=== PATIENT | male | born 1950 | race Caucasian/White ===

== ENCOUNTER 2020-10-10 11:19 | Emergency (ER) | payer MEDICARE, OTHER, SELFPAY ==
[2020-10-10] VITALS (39 sets, daily range): BP systolic 129–164; BP diastolic 63–94; PULSE 69–110; RESP 7–21; TEMP 36.7; O2SAT 93–100
--- NOTE | ~2020-10-10 | CT_ITS ---
EXAMINATION: CTA brain carotid DATE: 10/10/2020 13:29 INDICATION: Dizziness. TECHNIQUE: Computed tomographic angiography (CTA) of the head was performed without and with 100 mL O mnipaque-350 intravenous contrast. CTA of the neck was performed with intravenous contrast. Automated exposure control and iterative reconstruction technique were employed. The dose-length product was 1 750.40 mGy-cm. Maximum intensity projection and volume rendered 3D-reconstructions were created by felipe fu technologist on a separate workstation. COMPARISON: None. FINDINGS: HEAD CTA: There are old infarcts in the cerebellum bilaterally. There are scattered areas of low atte nuation in the cerebral white matter. There is an old lacunar infarct in the right basal ganglia. The re is no intracranial hemorrhage, acute infarction, or abnormal intracranial mass lesion. The ventric les are normal in size. There is mild mucosal thickening in the ethmoid sinuses. The mastoid air cell s are normal. The orbits are normal. The vertebral arteries are codominant. There is no significant s tenosis of basilar artery. There are foci of moderate stenosis of the posterior cerebral arteries dionte aterally. There is no significant stenosis of the intracranial internal carotid arteries or anterior cerebral arteries. There are foci of moderate stenosis of bilateral M2 middle cerebral arteries. Ther e is no aneurysm. Anterior communicating artery is normal. The posterior communicating arteries are n ormal. NECK CTA: The lungs demonstrate mosaic attenuation, likely small airways disease. There are no pathol ogically enlarged lymph nodes. There is no significant stenosis of the vertebral arteries. There is p laque in the proximal internal carotid arteries. There is 0% stenosis of the proximal right internal carotid artery relative to normal distal artery lumen diameter (NASCET criteria). There is 0% stenosi s of the proximal left internal carotid artery relative to normal distal artery lumen diameter. There is moderate cervical spondylosis. IMPRESSION: 1. Old infarcts in the cerebellum and right basal ganglia. 2. Moderate nonspecific cerebral white matter disease, which likely represents chronic small vessel i schemic disease. 3. Foci of moderate stenosis involving the bilateral middle and posterior cerebral arteries. 4. 0% stenosis of the proximal internal carotid arteries relative to normal distal artery lumen diame ters (NASCET criteria). Reviewed, dictated and finalized at location B. IMPRESSION: 1. Old infarcts in the cerebellum and right basal ganglia. 2. Moderate nonspecific cerebral white matter disease, which likely represents chronic small vessel ischemic disease. 3. Foci of moderate stenosis involving the bilateral middle and posterior cereb ral arteries. 4. 0% stenosis of the proximal internal carotid arteries relative to normal dis madisyn artery lumen diameters (NASCET criteria).
--- NOTE | ~2020-10-10 | XR_ITS ---
EXAMINATION: XR chest 2V DATE: 10/10/2020 13:37 INDICATION: Dizziness TECHNIQUE: frontal and lateral views of the chest were obtained. COMPARISON: None FINDINGS: Eventration of the anterior right hemidiaphragm exaggerated on the frontal projection by lordotic pos itioning. No focal airspace opacities, pulmonary edema, pleural effusion or pneumothorax. The cardiom ediastinal silhouette is normal. Mild thoracic spondylosis. IMPRESSION: 1. No acute cardiopulmonary disease. Reviewed, dictated and finalized at location A.
--- NOTE | 2020-10-10 11:45 | ECG_ITS ---
Measurements Intervals [place] Rate: 77 P: 3 AR: 172 QRS: -16 QRSD: 169 T: -3 QT: 415 QTc: 471 Interpretive Statements SINUS RHYTHM RIGHT BUNDLE BRANCH BLOCK BASELINE ARTIFACT- I, II, III, AVR, AVF, V1-V6 ABNORMAL ECG Electronically Signed On 10-10-2020 12:11:33 CDT by Heladio Winter D.O.
[2020-10-10 11:57] LABS: Basophils Absolute Auto 0.1 K/mm3 (0.0-0.1); Basophils Percent Auto 0.7 % (0.2-1.2); Eosinophils Absolute Auto 0.2 K/mm3 (0-0.3); Eosinophils Percent Auto 2.3 % (0-4.4); Hematocrit 44.3 % (42.0-52.0); Hemoglobin 14.4 g/dL (14.0-18.0); Immature Granulocyte Absolute 0.03 K/mm3 (0.00-0.031); Immature Granulocyte Percent A 0.4 % (0-0.5); Lymphocytes Absolute Auto 1.32 K/mm3 (0.9-3.2); Lymphocytes Percent Auto 19.4 % (18.3-44.2); Mean Corpuscular HGB Conc 32.5 g/dl (32-36); Mean Corpuscular Hemoglobin 29.1 pg (26-34); Mean Corpuscular Volume 89.5 fl (80-100); Mean Platelet Volume 10.8 fl (7.4-10.4); Monocytes Absolute Auto 0.4 K/mm3 (0.1-0.6); Monocytes Percent Auto 5.4 % (2.6-8.5); Neutrophils Absolute Auto 4.9 K/mm3 (1.3-6.7); Neutrophils Percent Auto 71.8 % (45.5-73.1); Platelet Count Result 180 k/mm3 (150-375); Red Blood Count 4.95 M/mm3 (4.6-6.20); Red Cell Distribution Width 13.2 % (11.5-14.5); White Blood Count 6.8 K/mm3 (4.5-10.0)
[2020-10-10 12:04] LABS: Anion Gap 10 mmol/L (8-16); Blood Urea Nitrogen 25 mg/dL (9-20); Calcium 9.1 mg/dL (8.4-10.2); Carbon Dioxide 23 mmol/L (22-30); Chloride 106 mmol/L (98-107); Estimated CRCL calculation 55 ml/min; Estimated Glomerular Filt Rate 43; Glucose 160 mg/dL (75-110); Potassium 4.4 mmol/L (3.4-5.0); Sodium 139 mmol/L (137-145)
--- NOTE | 2020-10-10 12:09 | ED.DIZZY ---
HPI - Dizziness General Chief Complaint: Dizziness Stated Complaint: Dizzy Time Seen by Provider: 10/10/20 12:08 Source: patient Mode of arrival: ambulatory Limitations: no limitations History of Present Illness HPI Narrative: Patient is a 70-year-old male with history of hypertension, type 2 diabetes who presents for evaluation of dizziness. Patient has had intermittent dizziness with movement over the past 2 weeks. Dizziness is described as spinning sensation which occurs for short period of time before spontaneously resolving. Patient denies current dizziness in the room. Dizziness resolves with rest. He reports associated nausea and vomiting with the dizziness. Denies chest pain or abdominal pain. No history of Covid. No vision changes, chest pain, cough or shortness of breath. Patient recently started Jardiance 1 month ago, is concerned that perhaps this medication is causing these adverse effects. He denies fever or chills. Pt reports he had a stroke in 2009, was treated at [place], no lasting deficits. No focal weakness or numbness. Related Data Home Medications Medication Instructions Recorded Confirmed aspirin 325 mg tablet 325 mg PO DAILY 04/25/20 08/01/20 diphenhydramine HCl 25 mg tablet 25 mg PO BID tablet 04/25/20 08/01/20 Allergies Allergy/AdvReac Type Severity Reaction Status Date / Time pregabalin Allergy Unknown Unknown Verified 08/01/20 09:12 Review of Systems Review of Systems: Narrative: CONSTITUTIONAL: Denies fever, chills, or sweats. EYES: Denies visual changes, redness, or discharge. ENT: Denies rhinorrhea, congestion, sore throat, or otalgia. CARDIOVASCULAR: Denies chest pain, palpitations, or edema. RESPIRATORY: Denies cough or dyspnea. GASTROINTESTINAL: Denies abdominal pain, nausea, vomiting, or diarrhea. GENITOURINARY: Denies dysuria or hematuria. SKIN: Denies rash or itching. MUSCULOSKELETAL: Denies back pain, joint pain, or myalgia. NEUROLOGIC: Denies current headache, numbness, or weakness. [facility] Past Medical History Medical History Bilateral primary osteoarthritis of knee BMI 45.0-49.9, adult Diabetic polyneuropathy associated with type 2 diabetes mellitus Essential (primary) hypertension Mixed hyperlipidemia SELIN on CPAP Screen for colon cancer Screening for prostate cancer Family History Family History Father Family history of throat cancer Grandparent Diabetes mellitus Other Family history of lung disease Family history of malignant neoplasm Social History Social History Smoking end date: 05/17/1967 Alcohol intake: current Exam Narrative: Exam Narrative: GENERAL: Awake, alert, conversant HEAD: Normocephalic, atraumatic. EYES: PERRLA and EOMI. ENT: Nares clear, no rhinorrhea or epistaxis. Mucous membranes moist. TMs clear bilaterally. NECK: Supple. CHEST: No respiratory distress, breathing even and non labored HEART: Regular rate, sinus rhythm ABDOMEN:Non distended, non tender EXTREMITIES: Normal range of motion. No edema. SKIN: Warm, dry, no rash. NEURO:No focal deficits. Alert and oriented x3. Finger to nose intact bilaterally. EOMs intact without nystagmus. No facial droop/asymmetry noted bilaterally. Grimace intact. Intact sensation in face. Hearing intact bilaterally. Shoulder shrug intact. Strength 5/5 bilateral upper extremities. Strength 5/5 bilateral lower extremities. Reflexes 2+ patellar. Heel to thomas intact bilaterally. Ambulatory exam deferred. NIHSS: 0 Course Vital Signs Vital signs: Vital Signs Temperature 36.7 C 10/10/20 11:26 Pulse Rate 78 10/10/20 11:26 Respiratory Rate 18 10/10/20 11:26 Blood Pressure 137/63 10/10/20 11:26 Pulse Oximetry 97 10/10/20 11:26 Temperature 36.7 C 10/10/20 11:26 Pulse Rate 72 10/10/20 16:01 Respiratory Rate 13
[2020-10-10] MEDS: MECLIZINE HCL 25 MG TABLET PO (13:04)
--- NOTE | 2020-10-10 13:12 | PC.NURSE ---
called Christelle tay, added on Trop I [id number]
[2020-10-10] MEDS: SODIUM CHLORIDE 0.9% IV 1,000 ML 999 ML IV CONT (13:45)
[2020-10-10 15:56] LABS: Troponin I < 0.012 ng/mL (0.000-0.034)
== END 2020-10-10 16:45 | disposition home or self-care (01) ==
PROVIDERS: Emergency Medicine; Emergency Provider Emergency Medicine; PCP Family Medicine
DX: R42 Dizziness and giddiness (principal); I10 Essential (primary) hypertension; M17.0 Bilateral primary osteoarthritis of knee; E11.42 Type 2 diabetes mellitus with diabetic polyneuropathy; E78.2 Mixed hyperlipidemia; G47.33 Obstructive sleep apnea (adult) (pediatric); I45.10 Unspecified right bundle-branch block
CPT/HCPCS: 36415; 70496; 70498; 71046; 80048; 84484; 85025; 93005; 96360; 99284; A9270; J7030; Q9967

== ENCOUNTER 2023-09-01 14:58 | Outpatient (CLI) | payer MEDICARE, OTHER, SELFPAY ==
--- NOTE | ~2023-09-01 | XR_ITS ---
EXAMINATION: XR foot LT 2V DATE: 09/01/2023 15:20 INDICATION: Unspecified open wound of great toe. TECHNIQUE: 2 views of left foot were obtained. COMPARISON: None. FINDINGS: There is dorsiflexion of the metatarsophalangeal joints and flexion of the interphalangeal joints. No fracture. There is mild osteoarthritis of first metatarsophalangeal joint and some of the interphalangeal joints. There are erosions of tuft of first distal phalanx. There are enthesophytes a t the posterior and plantar aspects of calcaneal tuberosity. Vascular calcifications are noted. IMPRESSION: 1. Erosions of the tuft of first distal phalanx, consistent with osteomyelitis. Reviewed, dictated and finalized at location E.
== END 2023-09-01 14:59 ==
LOC: MICIMG 15:00
PROVIDERS: PCP Family Medicine; Visit Provider Nurse Practitioner Adult Health
DX: S91.109A Unspecified open wound of unspecified toe(s) without damage to nail, initial encounter (principal); X58.XXXA Exposure to other specified factors, initial encounter
CPT/HCPCS: 73620

== ENCOUNTER 2023-09-09 13:49 | Outpatient (CLI) | payer MEDICARE, OTHER, SELFPAY ==
--- NOTE | ~2023-09-09 | US_ITS ---
EXAMINATION: US art doppler w press LE DATE: 09/09/2023 15:24 INDICATION: Peripheral arterial disease. TECHNIQUE: Segmental pressures and plethysmographic and Doppler waveforms of the brachial and lower e xtremity arteries were obtained. COMPARISON: None. FINDINGS: Right and left brachial artery pressures of 146 mm Hg and 141 mm Hg, respectively, are concordant (no rmal difference <= 30 mmHg). The right ankle-brachial index (CHICO) could not be measured due to inability to cuff occlude the arter ies (normal >= 0.9-1.0). The right great toe-brachial index (TBI) is 0.53 (normal >= 0.65). Arterial Doppler waveforms are biphasic in the common femoral artery, monophasic and superficial femoral arter y, and biphasic in popliteal artery and at the ankle. The left CHICO could not be measured due to inability to cuff occlude the arteries. The left TBI is 0.4 6. Arterial Doppler waveforms are biphasic and common femoral artery and noisy from superficial femor al artery to the ankle. IMPRESSION: 1. Decreased TBIs and nondiagnostic ABIs, consistent with arterial occlusive disease. Reviewed, dictated and finalized at location A. IMPRESSION: 1. Decreased TBIs and nondiagnostic ABIs, consistent with arterial occlusive di sease.
== END 2023-09-09 13:50 | disposition home or self-care (01) ==
PROVIDERS: PCP Family Medicine; Visit Provider Podiatrist Foot & Ankle Surgery
DX: I73.9 Peripheral vascular disease, unspecified (principal)
CPT/HCPCS: 93923

== ENCOUNTER 2024-04-22 11:37 | Inpatient (IN) | payer MEDICARE, OTHER, SELFPAY ==
[2024-04-22] VITALS (7 sets, daily range): BP systolic 126–154; BP diastolic 50–87; PULSE 76–97; RESP 16–20; TEMP 36.4; O2SAT 95–97
--- NOTE | ~2024-04-22 | XR_ITS ---
EXAMINATION: XR chest 1V portable DATE: 04/22/2024 12:11 INDICATION: Cerebrovascular accident. TECHNIQUE: A single frontal view of the chest was obtained on 2 radiographs. COMPARISON: Chest 2 views 10/10/2020 FINDINGS: There is no pneumonia, pleural effusion, or pneumothorax. The heart size is normal. IMPRESSION: 1. No acute cardiopulmonary disease. Reviewed, dictated and finalized at location A. HOUSE DISTRIBUTION SPECIALIST
--- NOTE | ~2024-04-22 | MR_ITS ---
EXAMINATION: MR brain/brain stem wo/w con DATE: 04/23/2024 09:02 INDICATION: Transient ischemic attack. TECHNIQUE: Magnetic resonance imaging (MRI) of the brain and brainstem was performed without and with 20 mL MultiHance intravenous contrast. COMPARISON: Head CT 04/22/2024 FINDINGS: There is an acute infarct in the right frontal parietal region. There are old infarcts in t he right cerebellum, left occipital lobe, and right basal ganglia. There are scattered areas of nonsp ecific increased T2-weighted signal intensity in the cerebral white matter. There is an old infarct i n the right frontoparietal region. There is no intracranial hemorrhage or abnormal mass lesion. The v entricles are normal in size. The orbits are normal. There is mild mucosal thickening in the paranasa l sinuses. There are trace bilateral mastoid effusions. IMPRESSION: 1. Acute infarct in the right frontoparietal region. 2. Old infarcts in the right cerebellum, left occipital lobe, right basal ganglia, and right frontopa rietal region. 3. Moderate nonspecific cerebral white matter disease, which likely represents chronic small vessel i schemic disease. Reviewed, dictated and finalized at location A. STERED APPRAISER IMPRESSION: 1. Acute infarct in the right frontoparietal region. 2. Old infarcts in the right cerebellum, left occipital lobe, right basal gangl ia, and right frontoparietal region. 3. Moderate nonspecific cerebral white matter disease, which likely represents chronic small vessel ischemic disease.
--- NOTE | ~2024-04-22 | CT_ITS ---
EXAMINATION: CTA brain carotid DATE: 04/22/2024 12:05 INDICATION: Cerebrovascular accident. TECHNIQUE: Computed tomographic angiography (CTA) of the head was performed with 100 mL Omnipaque-350 intravenous contrast. CTA of the neck was performed with intravenous contrast. Automated exposure co ntrol and iterative reconstruction technique were employed. The dose-length product was 1177.65 mGy-c m. Maximum intensity projection and volume rendered 3D-reconstructions were created by the technologi st on a separate workstation. COMPARISON: Head CT 04/22/24 FINDINGS: HEAD CTA: There are old infarcts involving the right cerebellum, left occipital lobe, and right basal ganglia. There are scattered areas of low attenuation in the cerebral white matter. There is no intr acranial hemorrhage, acute infarction, or abnormal intracranial mass lesion. The ventricles are sandoval l in size. There are trace mastoid effusions. There is mild mucosal thickening in the paranasal sinus es. The orbits are normal. The vertebral arteries are codominant. There is no significant stenosis of basilar artery. There is focal moderate stenosis of left P2 posterior cerebral artery. There is no s ignificant stenosis of intracranial internal carotid arteries or anterior or middle cerebral arteries . Anterior communicating artery is normal. The posterior communicating arteries are normal. There is no aneurysm. NECK CTA: There are no pathologically enlarged lymph nodes. There is no significant stenosis of the v ertebral arteries. There is plaque in the proximal internal carotid arteries. There is 0% stenosis of the proximal right internal carotid artery relative to normal distal artery lumen diameter (NASCET c riteria). There is 0% stenosis of the proximal left internal carotid artery relative to normal distal artery lumen diameter. There is severe cervical spondylosis. IMPRESSION: 1. Old infarcts involving the right cerebellum, left occipital lobe, and right basal ganglia. 2. Moderate nonspecific cerebral white matter disease, which likely represents chronic small vessel i schemic disease. 3. 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 4. 0% stenosis of the proximal internal carotid arteries relative to normal distal artery lumen diame ters (NASCET criteria). Reviewed, dictated and finalized at location A. L PRACTICE MANAGER IMPRESSION: 1. Old infarcts involving the right cerebellum, left occipital lobe, and right basal ganglia. 2. Moderate nonspecific cerebral white matter disease, which likely represents chronic small vessel ischemic disease. 3. 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 4. 0% stenosis of the proximal internal carotid arteries relative to normal dis madisyn artery lumen diameters (NASCET criteria).
--- NOTE | ~2024-04-22 | CT_ITS ---
EXAMINATION: CT brain wo con DATE: 04/22/2024 11:59 INDICATION: Cerebrovascular accident. TECHNIQUE: Computed tomography (CT) of the head was performed without intravenous contrast. The mA wa s adjusted according to patient size. Iterative reconstruction technique was employed. The dose-lengt h product was 605.33 mGy-cm. COMPARISON: Head CT 10/10/2020 FINDINGS: There is an old infarct in the right cerebellum. There is an old infarct in the left occipi madisyn lobe. There is an old infarct in the right basal ganglia. There are scattered areas of low attenu ation in the cerebral white matter. There is no intracranial hemorrhage, acute infarction, or abnorma l intracranial mass lesion. The ventricles are normal in size. There is mild mucosal thickening in th e paranasal sinuses. The orbits are normal. There are trace bilateral mastoid effusions. IMPRESSION: 1. Old infarcts in the right cerebellum, left occipital lobe, and right basal ganglia. 2. Stable moderate nonspecific cerebral white matter disease, which likely represents chronic small v essel ischemic disease. Reviewed, dictated and finalized at location A. HASING AGENT IMPRESSION: 1. Old infarcts in the right cerebellum, left occipital lobe, and right basal g anglia. 2. Stable moderate nonspecific cerebral white matter disease, which likely repr esents chronic small vessel ischemic disease.
--- NOTE | 2024-04-22 11:37 | ECG_ITS ---
Test Date: 2024-04-22 12:19:35 Measurements Intervals [place] Rate: 91 P: 38 UT: 162 QRS: -86 QRSD: 159 T: 39 QT: 374 QTc: 461 Interpretive Statements SINUS RHYTHM RIGHT BUNDLE BRANCH BLOCK [120+ ms QRS DURATION, UPRIGHT V1, 40+ ms S IN I/aVL/V4/V5/V6] LEFT ANTERIOR FASCICULAR BLOCK [QRS AXIS <= -45, QR IN I, RS IN II] No previous ECG available for comparison Electronically Signed On 04-22-2024 14:42:01 PHOTOGRAPH PRINTER by Eitan Sanchez M.D.
--- NOTE | 2024-04-22 11:45 | ED_ITS ---
HPI - Neuro Symptoms/Deficit General Chief Complaint: Suspected CVA Stated Complaint: ?code stroke Time Seen by Provider: 04/22/24 11:40 Source: patient and EMS Mode of arrival: EMS Limitations: no limitations History of Present Illness HPI Narrative: patient presents with can acute neuro deficits. It is initially stated the last known well was at 10:50 a.m. at which time his noted him to change mental status While eating breakfast when he had facial drooping. EMS notes that the facial drooping has resolved but he was noted to have caustic liquor maker weakness on the left. However later in his determined that his last known was between 730 and 8:00 a.m. this morning and at 10:50 a.m. is when he was next seen. patient is on Eliquis. Of care glucose 221 grams/deciliter. He does not take aspirin. Patient's and family members report that he has slurred speech and he became confused upon lost while driving and was unstable/unsteady getting in out of car. He has a history of insulin-dependent diabetes for which he is on long- acting Lantus 30 units q.h.s. as well as a short-acting agent. Has a history of TIA/CVA. Initial incident was in 2009 but he had no residual deficits. That episode presented aphasia at the time. When he presented to the hospital in September 2021 for vertigo he was determined that he had had an strokes in the interim. No residual deficits. Related Data Home Medications Medication Instructions Recorded Confirmed diphenhydramine HCl 25 mg tablet 25 mg PO Q12H 04/25/20 04/22/24 (Benadryl Allergy) empagliflozin 25 mg tablet 25 mg PO DAILY 04/22/24 04/22/24 (Jardiance) insulin glargine 100 unit/mL (3 30 unit subcut QHS 04/22/24 04/22/24 mL) subcutaneous pen (Lantus Solostar U-100 Insulin) sitagliptin phos 50 mg-metformin 1 tablet PO Q12H 04/22/24 04/22/24 ER 1,000 mg tablet,extend rel 24h mp (Janumet XR) Allergies Allergy/AdvReac Type Severity Reaction Status Date / Time pregabalin AdvReac Intermediate Cramping Verified 04/22/24 12:06 of the [facility] Past Medical History Medical History (Updated 04/24/24 @ 12:30 by Vanita Mccann MD) Acute ischemic right MCA stroke Bilateral primary osteoarthritis of knee Cellulitis of great toe of left foot Cerebrovascular accident (CVA) Chronic osteomyelitis of toe of left foot CKD stage 3 due to type 2 diabetes mellitus Diabetes mellitus Diabetic polyneuropathy associated with type 2 diabetes mellitus Diabetic ulcer of toe Dyspnea Essential (primary) hypertension Mixed hyperlipidemia SELIN on CPAP Screen for colon cancer Screening for prostate cancer Strain of calf muscle Wound, open, toe Surgical History Surgical History H/O knee surgery Family History Family History Father Family history of throat cancer Tobacco abuse Failure to thrive in adult Grandparent Diabetes mellitus Mother COPD (chronic obstructive pulmonary disease) Tobacco abuse Sibling , Onset Age: 24 motorcycle accident Tobacco abuse Other Family history of lung disease Family history of malignant neoplasm Pain of toe Social History Social History Smoking packs per day: 1 Smoking cigarettes per day: 20.0 Years smoked: 2 Smoking pack-years: 2.00 Smoking status: Former smoker Second hand tobacco smoke exposure: Yes Alcohol intake: current Drinks per week: 1 Substance use: never Substance use type: does not use Do You Feel Safe in your Home?: Yes Lack of Transportation: No Lack of Food: Never True Current Housing: I Have Housing Concerned About Future Housing: No Difficulty Paying Gas/Electric Bills: No Difficulty Paying for Meds: No Currently Unemployed: No Education: Decline to Answer Difficulty w/ Childcare or Family Care: No Living arrangements: with family Occupation/Education: retired 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 Gender identity (if verbalized by the patient): Male Spiritual care concerns: No Exam Narrative: GENERAL: Well-appearing, well-nourished, and in no acute distress. HEAD: Normocephalic, atraumatic. EYES: Non injected, non icteric. No gaze deviation. Extraocular movements intact horizontally. No loss of visual burns. ENT: Nares clear, no rhinorrhea or epistaxis. NECK: Supple. CHEST: Speaking in full sentences. No respiratory distress. HEART: Regular rate and rhythm. . ABDOMEN: Soft, nondistended. EXTREMITIES: Normal range of motion. No lower extremity edema. SKIN: Warm, dry, no rash. NEURO: No focal deficits. Alert and oriented x3. Speaks clearly without aphasia or dysarthria. No motor drift of extremities x4. Sensation intact x4 extrmeties. Normal finger nose finger. Follows commands. patient does fail extinction test as when dual stimuli applied he does not recognize/mention touch in one of the extremities, only one. PSYCH: Normal mood and affect. Course Vital Signs Vital signs: Vital Signs Temperature 97.5 F L 04/22/24 12:05 Pulse Rate 93 04/22/24 12:05 Respiratory Rate 16 04/22/24 12:05 Blood Pressure 134/68 04/22/24 12:05 Pulse Oximetry 97 04/22/24 12:05 Temperature 93 F L 04/24/24 16:00 Pulse Rate 85 04/24/24 16:00 Respiratory Rate 20 04/24/24 16:00 Blood Pressure 143/81 H 04/24/24 16:00 Pulse Oximetry 98 04/24/24 16:00 Oxygen Delivery Room Air 04/24/24 12:00 MDM - Neuro Symptoms/Deficit MDM Narrative Medical decision making narrative: This is a 73 year old male who presents to the emergency department with concern for possible stroke. Last known well is 07:30 or 8:00 after clarification. The patient is protecting their airway which is patent. An IV is established by nursing staff blood work sent to the lab for evaluation. An EKG will be pe rformed. Accu-Chek was acceptable. NIHSS was evaluated per below. The patient was transported immediately to CT scan per stroke protocol for evaluation of acute intracranial bleed. In the emergency department they are afebrile with vital signs within normal limits. NIHSS Level Of consciousness: 0 Month and age:0 Follows commands:0 Gaze palsy:0 Visual burns:0 Facial palsy:0 Left arm motor drift:0 Right arm motor drift:0 Left leg motor drift:0 Right leg motor drift:0 Limb ataxia:0 Sensation:0 Aphasia:0 Dysarthria:0 Extinction: 1 Total: 1 CT per stroke protocol shows: No acute process. He does have some findings on CTA as below. Patient has comorbidities that complexity management. Namely, history of prior TIA/CVA. No deficits as a result. in addition he has diabetes mellitus And is on anticoagulation. Labs show Hyperglycemia without anion gap acidosis. Improved neuro exam more consistent with TIA (cerebral thrombus/embolus without infarct). ABCD2 Risk Score Age greater than or equal to 60: 1 SBP greater than or equal to140 or greater than or equal to DBP >90: 0 Speech impairment without weakness: 1 TIA duration 10-59 min: 1 Diabetes 1 Total Score 4 Per the validation study, 4-5 points confers a 2-day stroke risk of 4.1% and a 7-day stroke risk of 5.9% and a 90-day stroke risk of 9.8%. Shared decision making with patent to discuss the recommendation for admission for further work up. He and family verifies understanding and are agreeable. Management is Discussed with neurologist Dr Sneed. Discussed stenosis seen on CTA brain. Still recommends proceeding with TIA work up including MRI. Will initiate aspirin. Admitted to hospital after discussing with Chelita QUIROGA hospitalist. Will be observation admission. IMU given TIA work up. Differential Diagnosis Differential diagnosis: Likely subarachnoid hemorrhage, cerebrovascular accident, multiple sclerosis, transient cerebral ischemia and other ( considered other etiologies such as hypoglycemia, infection, electrolyte abnormalities, etc.) Lab Data Attestation: I reviewed the patient's lab results. 04/23/24 04:42 04/23/24 04:42 Labs: Lab Results 04/22/24 04/22/24 04/22/24 Range/Units 11:40 11:41 11:41 WBC 8.1 (4.5-10.0) K/mm3 RBC 4.97 (4.6-6.20) M/mm3 Hgb 14.4 (14.0-18.0) g/dL Hct 44.5 (42.0-52.0) % MCV 89.5 (80-100) fl MCH 29.0 (26-34) pg MCHC 32.4 (32-36) g/dl RDW 13.6 (11.5-14.5) % Plt Count 160 (150-375) k/mm3 MPV 11.2 H (7.4-10.4) fl Immature Gran % (Auto) 0.4 (0-0.5) % Neut % (Auto) 63.2 (45.5-73.1) % Lymph % (Auto) 24.8 (18.3-44.2) % [place] % (Auto) 6.2 (2.6-8.5) % Eos % (Auto) 4.7 H (0-4.4) % Baso % (Auto) 0.7 (0.2-1.2) % Lymph # (Auto) 2.00 (0.9-3.2) K/mm3 [place] # (Auto) 0.5 (0.1-0.6) K/mm3 Eos # (Auto) 0.4 H (0-0.3) K/mm3 Baso # (Auto) 0.1 (0.0-0.1) K/mm3 Abs Immat Gran (auto) 0.03 (0.00-0.031) K/mm3 Absolute Neuts (auto) 5.1 (1.3-6.7) K/mm3 Absolute Nucleated RBC 0.000 (0.0-0.012) K/mm3 Nucleated RBC % 0.0 (0.0-0.2) % PT 14.1 (11.1-14.7) Seconds INR 1.0 APTT 25.8 (22.3-36.8) Seconds Sodium (137-145) mmol/L Potassium (3.4-5.0) mmol/L Chloride (98-107) mmol/L Carbon Dioxide (22-30) mmol/L Anion Gap (4-12) mmol/L BUN (9-20) mg/dL Creatinine (0.8-1.5) mg/dL Estim Creat Clear Calc Estimated GFR (59 - ) Glucose (65-110) mg/dL POC Capillary Glucose (65-105) mg/dl Hemoglobin A1c 7.1 H (<5.7) % Calcium (8.4-10.2) mg/dL Total Bilirubin (0.2-1.3) mg/dL AST (17-59) U/L ALT (6-50) U/L Alkaline Phosphatase (38-126) U/L Troponin I Cancelled < 0.012 Total Protein (6.3-8.2) g/dL Albumin (3.5-5.1) g/dL Triglycerides (<150) mg/dL Cholesterol (0-200) mg/dL LDL Cholesterol Direct mg/dL HDL Direct mg/dL Urine Color (Yellow) Urine Appearance (Clear) Urine pH (5.0-9.0) Ur Specific [place] (1.001-1.035) Urine Protein (Negative) mg/dL Urine Glucose (UA) (Negative) mg/dL Urine Ketones (Negative) mg/dL Ur Blood (Man) (Negative) Urine Nitrate (Negative) Urine Bilirubin (Negative) Urine Urobilinogen (<2.0) mg/dL Leukocyte Esterase Rfl (Negative) JOSE/UL 04/22/24 04/22/24 04/22/24 Range/Units 11:47 12:33 16:49 WBC (4.5-10.0) K/mm3 RBC (4.6-6.20) M/mm3 Hgb (14.0-18.0) g/dL Hct (42.0-52.0) % MCV (80-100) fl MCH (26-34) pg MCHC (32-36) g/dl RDW (11.5-14.5) % Plt Count (150-375) k/mm3 MPV (7.4-10.4) fl Immature Gran % (Auto) (0-0.5) % Neut % (Auto) (45.5-73.1) % Lymph % (Auto) (18.3-44.2) % [place] % (Auto) (2.6-8.5) % Eos % (Auto) (0-4.4) % Baso % (Auto) (0.2-1.2) % Lymph # (Auto) (0.9-3.2) K/mm3 [place] # (Auto) (0.1-0.6) K/mm3 Eos # (Auto) (0-0.3) K/mm3 Baso # (Auto) (0.0-0.1) K/mm3 Abs Immat Gran (auto) (0.00-0.031) K/mm3 Absolute Neuts (auto) (1.3-6.7) K/mm3 Absolute Nucleated RBC (0.0-0.012) K/mm3 Nucleated RBC % (0.0-0.2) % PT (11.1-14.7) Seconds INR APTT (22.3-36.8) Seconds Sodium 137 (137-145) mmol/L Potassium 4.8 (3.4-5.0) mmol/L Chloride 105 (98-107) mmol/L Carbon Dioxide 26 (22-30) mmol/L Anion Gap 6 (4-12) mmol/L BUN 31 H (9-20) mg/dL Creatinine 1.60 H 1.30 (0.8-1.5) mg/dL Estim Creat Clear Calc Not Reportable Not Reportable Estimated GFR 42 L 54 L (59 - ) Glucose 165 H (65-110) mg/dL POC Capillary Glucose 127 H (65-105) mg/dl Hemoglobin A1c (<5.7) % Calcium 9.0 (8.4-10.2) mg/dL Total Bilirubin 0.9 (0.2-1.3) mg/dL AST 24 (17-59) U/L ALT 18 (6-50) U/L Alkaline Phosphatase 42 (38-126) U/L Troponin I Total Protein 7.0 (6.3-8.2) g/dL Albumin 3.9 (3.5-5.1) g/dL Triglycerides (<150) mg/dL Cholesterol (0-200) mg/dL LDL Cholesterol Direct mg/dL HDL Direct mg/dL Urine Color (Yellow) Urine Appearance (Clear) Urine pH (5.0-9.0) Ur Specific [place] (1.001-1.035) Urine Protein (Negative) mg/dL Urine Glucose (UA) (Negative) mg/dL Urine Ketones (Negative) mg/dL Ur Blood (Man) (Negative) Urine Nitrate (Negative) Urine Bilirubin (Negative) Urine Urobilinogen (<2.0) mg/dL Leukocyte Esterase Rfl (Negative) JOSE/UL 04/22/24 04/23/24 04/23/24 Range/Units 21:00 04:42 07:16 WBC 8.0 (4.5-10.0) K/mm3 RBC 4.97 (4.6-6.20) M/mm3 Hgb 14.3 (14.0-18.0) g/dL Hct 44.1 (42.0-52.0) % MCV 88.7 (80-100) fl MCH 28.8 (26-34) pg MCHC 32.4 (32-36) g/dl RDW 13.6 (11.5-14.5) % Plt Count 152 (150-375) k/mm3 MPV 10.8 H (7.4-10.4) fl Immature Gran % (Auto) 0.1 (0-0.5) % Neut % (Auto) 57.6 (45.5-73.1) % Lymph % (Auto) 28.1 (18.3-44.2) % [place] % (Auto) 8.2 (2.6-8.5) % Eos % (Auto) 5.2 H (0-4.4) % Baso % (Auto) 0.8 (0.2-1.2) % Lymph # (Auto) 2.23 (0.9-3.2) K/mm3 [place] # (Auto) 0.7 H (0.1-0.6) K/mm3 Eos # (Auto) 0.4 H (0-0.3) K/mm3 Baso # (Auto) 0.1 (0.0-0.1) K/mm3 Abs Immat Gran (auto) 0.01 (0.00-0.031) K/mm3 Absolute Neuts (auto) 4.6 (1.3-6.7) K/mm3 Absolute Nucleated RBC 0.000 (0.0-0.012) K/mm3 Nucleated RBC % 0.0 (0.0-0.2) % PT (11.1-14.7) Seconds INR APTT (22.3-36.8) Seconds Sodium 138 (137-145) mmol/L Potassium 4.3 (3.4-5.0) mmol/L Chloride 107 (98-107) mmol/L Carbon Dioxide 25 (22-30) mmol/L Anion Gap 6 (4-12) mmol/L BUN 26 H (9-20) mg/dL Creatinine 1.30 (0.8-1.5) mg/dL Estim Creat Clear Calc 60 Estimated GFR 54 L (59 - ) Glucose 115 H (65-110) mg/dL POC Capillary Glucose 172 H 142 H (65-105) mg/dl Hemoglobin A1c (<5.7) % Calcium 8.9 (8.4-10.2) mg/dL Total Bilirubin (0.2-1.3) mg/dL AST (17-59) U/L ALT (6-50) U/L Alkaline Phosphatase (38-126) U/L Troponin I Total Protein (6.3-8.2) g/dL Albumin (3.5-5.1) g/dL Triglycerides 102 (<150) mg/dL Cholesterol 115 (0-200) mg/dL LDL Cholesterol Direct 36 mg/dL HDL Direct 50 mg/dL Urine Color (Yellow) Urine Appearance (Clear) Urine pH (5.0-9.0) Ur Specific [place] (1.001-1.035) Urine Protein (Negative) mg/dL Urine Glucose (UA) (Negative) mg/dL Urine Ketones (Negative) mg/dL Ur Blood (Man) (Negative) Urine Nitrate (Negative) Urine Bilirubin (Negative) Urine Urobilinogen (<2.0) mg/dL Leukocyte Esterase Rfl (Negative) JOSE/UL 04/23/24 04/23/24 04/23/24 Range/Units 11:31 11:41 14:45 WBC (4.5-10.0) K/mm3 RBC (4.6-6.20) M/mm3 Hgb (14.0-18.0) g/dL Hct (42.0-52.0) % MCV (80-100) fl MCH (26-34) pg MCHC (32-36) g/dl RDW (11.5-14.5) % Plt Count (150-375) k/mm3 MPV (7.4-10.4) fl Immature Gran % (Auto) (0-0.5) % Neut % (Auto) (45.5-73.1) % Lymph % (Auto) (18.3-44.2) % [place] % (Auto) (2.6-8.5) % Eos % (Auto) (0-4.4) % Baso % (Auto) (0.2-1.2) % Lymph # (Auto) (0.9-3.2) K/mm3 [place] # (Auto) (0.1-0.6) K/mm3 Eos # (Auto) (0-0.3) K/mm3 Baso # (Auto) (0.0-0.1) K/mm3 Abs Immat Gran (auto) (0.00-0.031) K/mm3 Absolute Neuts (auto) (1.3-6.7) K/mm3 Absolute Nucleated RBC (0.0-0.012) K/mm3 Nucleated RBC % (0.0-0.2) % PT (11.1-14.7) Seconds INR APTT (22.3-36.8) Seconds Sodium (137-145) mmol/L Potassium (3.4-5.0) mmol/L Chloride (98-107) mmol/L Carbon Dioxide (22-30) mmol/L Anion Gap (4-12) mmol/L BUN (9-20) mg/dL Creatinine (0.8-1.5) mg/dL Estim Creat Clear Calc Estimated GFR (59 - ) Glucose (65-110) mg/dL POC Capillary Glucose 168 H 179 H (65-105) mg/dl Hemoglobin A1c (<5.7) % Calcium (8.4-10.2) mg/dL Total Bilirubin (0.2-1.3) mg/dL AST (17-59) U/L ALT (6-50) U/L Alkaline Phosphatase (38-126) U/L Troponin I Total Protein (6.3-8.2) g/dL Albumin (3.5-5.1) g/dL Triglycerides (<150) mg/dL Cholesterol (0-200) mg/dL LDL Cholesterol Direct mg/dL HDL Direct mg/dL Urine Color Yellow (Yellow) Urine Appearance Clear (Clear) Urine pH 6.0 (5.0-9.0) Ur Specific [place] 1.026 (1.001-1.035) Urine Protein Negative (Negative) mg/dL Urine Glucose (UA) 3+ H (Negative) mg/dL Urine Ketones Negative (Negative) mg/dL Ur Blood (Man) Negative (Negative) Urine Nitrate Negative (Negative) Urine Bilirubin Negative (Negative) Urine Urobilinogen 0.2 (<2.0) mg/dL Leukocyte Esterase Rfl Negative (Negative) JOSE/UL Imaging Data Radiologist's impression: ESSION: 1. Old infarcts in the right cerebellum, left occipital lobe, and right basal ganglia. 2. Stable moderate nonspecific cerebral white matter disease, which likely represents chronic small vessel ischemic disease. IMPRESSION: 1. Old infarcts involving the right cerebellum, left occipital lobe, and right basal ganglia. 2. Moderate nonspecific cerebral white matter disease, which likely represents chronic small vessel ischemic disease. 3. 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 4. 0% stenosis of the proximal internal carotid arteries relative to normal distal artery lumen diameters (NASCET criteria). IMPRESSION: 1. No acute cardiopulmonary disease. ECG Data EKG #1: Attestation: I personally reviewed and interpreted this ECG as follows: ECG completion date: 04/22/24 ECG completion time: 12:19 Interpretation: Normal sinus rhythm at a rate of 91 beats per minute. RBBB given QRS greater [id number]; RSR' M-shaped pattern in V1-V3; wide, slurred S wave in lateral leads (I, aVL, V5-6). QRS 159. MS interval 162. QT/QTC 374/422. Left anterior fascicular block with rS complexes in leads II, III, aVF (small R waves, deep S waves), qR complexes in lead I , avL (small Q waves and tall R waves) and left axis deviation with Leads II, III and aVF negative and leads I and aVL positive. Poor R-wave progression across the precordial leads. T-wave inversion in V3 otherwise normal in V4. Discharge Plan Discharge Clinical Impression: Brain TIA, History of cerebral infarction, Right bundle branch block, LAFB ( left anterior fascicular block), Hyperglycemia Patient Disposition: Still a Patient Condition: Stable
[2024-04-22 11:50] LABS: Basophils Absolute Auto 0.1 K/mm3 (0.0-0.1); Basophils Percent Auto 0.7 % (0.2-1.2); Eosinophils Absolute Auto 0.4 K/mm3 (0-0.3); Eosinophils Percent Auto 4.7 % (0-4.4); Hematocrit 44.5 % (42.0-52.0); Hemoglobin 14.4 g/dL (14.0-18.0); Immature Granulocyte Absolute 0.03 K/mm3 (0.00-0.031); Immature Granulocyte Percent A 0.4 % (0-0.5); Lymphocytes Percent Auto 24.8 % (18.3-44.2); Mean Corpuscular HGB Conc 32.4 g/dl (32-36); Mean Corpuscular Volume 89.5 fl (80-100); Mean Platelet Volume 11.2 fl (7.4-10.4); Monocytes Absolute Auto 0.5 K/mm3 (0.1-0.6); Monocytes Percent Auto 6.2 % (2.6-8.5); Neutrophils Absolute Auto 5.1 K/mm3 (1.3-6.7); Neutrophils Percent Auto 63.2 % (45.5-73.1); Platelet Count Result 160 k/mm3 (150-375); Red Blood Count 4.97 M/mm3 (4.6-6.20); Red Cell Distribution Width 13.6 % (11.5-14.5); White Blood Count 8.1 K/mm3 (4.5-10.0)
[2024-04-22 11:50] LABS: Estimated Glomerular Filt Rate 42
[2024-04-22 12:00] LABS: Prothrombin Time 14.1 Seconds (11.1-14.7)
[2024-04-22 12:01] LABS: Partial Thromboplastin Time 25.8 Seconds (22.3-36.8)
[2024-04-22 12:16] LABS: Troponin I < 0.012 ng/mL (0.000-0.034)
[2024-04-22 12:51] LABS: Alanine Aminotransferase 18 U/L (6-50); Albumin Level 3.9 g/dL (3.5-5.1); Alkaline Phosphatase 42 U/L (38-126); Anion Gap 6 mmol/L (4-12); Aspartate Amino Transferase 24 U/L (17-59); Bilirubin,Total 0.9 mg/dL (0.2-1.3); Blood Urea Nitrogen 31 mg/dL (9-20); Carbon Dioxide 26 mmol/L (22-30); Chloride 105 mmol/L (98-107); Estimated Glomerular Filt Rate 54; Glucose 165 mg/dL (65-110); Potassium 4.8 mmol/L (3.4-5.0); Sodium 137 mmol/L (137-145)
--- NOTE | 2024-04-22 14:45 | PC.NURSE ---
lab called to add on hemoglobin A1c
[2024-04-22 15:07] LABS: Hemoglobin A1C 7.1 % (<5.7)
--- NOTE | 2024-04-22 16:23 | P.HP_ITS ---
H&P: HPI History of Present Illness Date/Time: 04/22/24 16:23 Chief Complaint: Dysarthria, Left Sided Weakness Narrative: 73 y/o M presents here with left-sided weakness and dysarthria with PMH of CVA w/no residual deficits, CKD stage 3, DM, HTN, HLD, and SELIN on CPAP. The patient presents here from home via EMS for further evaluation of left-sided weakness and dysarthria. Patient had left home for a celebratory breakfast at around 7:45 a.m. and he felt like his normal self. Patient did not speak this morning to his before he left. Reported no changes in his gait when he went out to his car. Could not find the building and ended up turning around and coming home. When he exited his car when he returned home around 10:45 a.m., he noted some changes in his gait. At this time the patient's noticed that the patient had left-sided weakness and dysarthria which she described as his mouth possible marbles . Symptoms lasted for approximately 3-4 hours, had resolved by the time he presented to the ER. Last known well was yesterday, 04/21, at 5:30 p.m. Unclear onset of dysarthria, more clear onset of weakness. He has a history of CVA with no residual deficits in 2020. Stroke evaluation in the ED showed 1 point for extinction deficit. CTA was performed of the head/neck which showed no acute infarcts but did show a focal moderate stenosis of the left P2 posterior cerebral artery. ED provider spoke with on-call neurologist who recommended admission for TIA workup. The patient is currently denying focal deficits including weakness, numbness, dyasrthria, vision changes, dizziness, or headache. Has not ambulated since arrival. Initial VS at presentation: 97.5? F, HR 93, R 16, 134/60, and 97% on RA. ED workup showed: No leukocytosis, no anemia, normal coags, no significant elec trolyte derangements, creatinine 1.6 and GFR 42 (previously 1.47 and GFR 50 in 2022), initial troponin negative. Head CT showed old infarcts in the right cerebellum, left occipital lobe, and right basal ganglia as well as stable moderate nonspecific cerebral white matter disease. CTA of the head/neck showed old infarcts involving the right cerebellum, left occipital lobe, and right basal ganglia, moderate nonspecific cerebral white matter disease, focal moderate stenosis of the left P2 posterior cerebral artery, and 0% stenosis of the proximal internal carotid arteries. CXR showed no acute cardiopulmonary disease. Review of Systems Review of Systems: All systems reviewed & are unremarkable except as noted in HPI and below [facility] Past Medical History Medical History Bilateral primary osteoarthritis of knee Cellulitis of great toe of left foot Cerebrovascular accident (CVA) Chronic osteomyelitis of toe of left foot CKD stage 3 due to type 2 diabetes mellitus Diabetes mellitus Diabetic polyneuropathy associated with type 2 diabetes mellitus Diabetic ulcer of toe Dyspnea Essential (primary) hypertension Mixed hyperlipidemia SELIN on CPAP Screen for colon cancer Screening for prostate cancer Strain of calf muscle Wound, open, toe Surgical History Surgical History H/O knee surgery Family History Family History Father Family history of throat cancer Tobacco abuse Failure to thrive in adult Grandparent Diabetes mellitus Mother COPD (chronic obstructive pulmonary disease) Tobacco abuse Sibling , Onset Age: 24 motorcycle accident Tobacco abuse Other Family history of lung disease Family history of malignant neoplasm Pain of toe Social History Social History Smoking packs per day: 1 Smoking cigarettes per day: 20.0 Years smoked: 2 Smoking pack-years: 2.00 Smoking status: Former smoker Second hand tobacco smoke exposure: Yes Alcohol intake: current Drinks per week: 1 Substance use: never Substance use type: does not use Do You Feel Safe in your Home?: Yes Lack of Transportation: No Lack of Food: Never True Current Housing: I Have Housing Concerned About Future Housing: No Difficulty Paying Gas/Electric Bills: No Difficulty Paying for Meds: No Currently Unemployed: No Education: Decline to Answer Difficulty w/ Childcare or Family Care: No Living arrangements: with family Occupation/Education: retired 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 Gender identity (if verbalized by the patient): Male Spiritual care concerns: No Meds Home Medications and Allergies Home Medications Medication Instructions Recorded Confirmed Type diphenhydramine HCl 25 mg tablet 25 mg PO Q12H 04/25/20 04/22/24 History (Benadryl Allergy) flash glucose sensor (FreeStyle #6 ea 02/09/23 04/22/24 Rx Osiel 2 Sensor kit) enalapril maleate 10 mg tablet 10 mg PO DAILY #90 tabs 06/10/23 04/22/24 Rx insulin lispro 100 unit/mL See Rx Instructions subcut .QAC & 09/02/23 04/22/24 Rx subcutaneous pen (Humalog KwikPen QHS #15 mL (U-100) Insulin) pen needle, diabetic 31 gauge x #300 ea 11/11/23 04/22/24 Rx 3/16 (BD Ultra-Fine Mini Pen Needle) rosuvastatin 20 mg tablet 20 mg PO DAILY #90 tabs 12/27/23 04/22/24 Rx gabapentin 300 mg capsule 600 mg PO TID #540 caps 03/06/24 04/22/24 Rx apixaban 2.5 mg tablet (Eliquis) 2.5 mg PO DAILY 04/22/24 04/22/24 History empagliflozin 25 mg tablet 25 mg PO DAILY 04/22/24 04/22/24 History (Jardiance) insulin glargine 100 unit/mL (3 30 unit subcut QHS 04/22/24 04/22/24 History mL) subcutaneous pen (Lantus Solostar U-100 Insulin) sitagliptin phos 50 mg-metformin 1 tablet PO Q12H 04/22/24 04/22/24 History ER 1,000 mg tablet,extend rel 24h mp (Janumet XR) Allergies Allergy/AdvReac Type Severity Reaction Status Date / Time pregabalin AdvReac Intermediate Cramping Verified 04/22/24 12:06 of the Muscles Vital Signs Vital Signs - 24 hr 04/22/24 12:05 04/22/24 14:57 Temperature 97.5 F L Pulse Rate 93 76 Respiratory Rate 16 16 Blood Pressure 134/68 142/75 H Pulse Oximetry 97 95 Exam Const: General: comfortable and no acute distress Other: , male, nontoxic appears HENMT: Face/Nose/Sinus: Normal nares present Mouth: Yes moist mucous membranes Eyes: General: appearance normal, both eyes and all related structures Sclera: sclerae normal Pupils: Equal, round and reactive pupils present EOM: EOMs intact bilaterally Resp: Effort & Inspection: normal respiratory effort Auscultation: clear to auscultation bilaterally Cardio: Rate: regular rate Rhythm: regular rhythm Other: S1-S2 present without murmur, rub, ectopy GI: Other: Abdomen rounded, soft, and normoactive bowel sounds in all quadrants. Skin: General skin exam: normal color and no rashes or lesions noted Wounds: no wounds Neuro: Other: Initial NIHSS 1a: Level of Consciousness 0 1b: LOC Questions 0 1c:?LOC Tasks 0 2:?Best Gaze 0 3:?Visual?Nelson 0 4: Facial Palsy 0 5a: Motor Arm?R 0 5b: Motor Arm L 0 6a:?Motor Leg R 0 6a:?Motor Leg L 0 7: Limb Ataxia 0 8: Sensation 0 9:?Language/Aphasia 0 10:?Dysarthria?0 11: Extinction and Inattention 0 total 0 No dysarthria, facial droop, focal deficits, focal numbness on exam. A&O x4. Extrem: General: normal to inspection Psych: Mental Status: mental status grossly normal Affect: normal affect Other: Good insight and judgment, pleasant H&P: Results Labs Labs: Short CBC 04/22/24 Range/Units 11:41 WBC 8.1 (4.5-10.0) K/mm3 Hgb 14.4 (14.0-18.0) g/dL Hct 44.5 (42.0-52.0) % Plt Count 160 (150-375) k/mm3 BMP 04/22/24 04/22/24 11:47 12:33 Sodium 137 Potassium 4.8 Chloride 105 Carbon Dioxide 26 BUN 31 H Creatinine 1.60 H 1.30 Glucose 165 H Calcium 9.0 Cardiac Enzymes 04/22/24 04/22/24 Range/Units 11:41 11:41 Troponin I Cancelled < 0.012 Liver Function 04/22/24 Range/Units 12:33 Total Bilirubin 0.9 (0.2-1.3) mg/dL AST 24 (17-59) U/L ALT 18 (6-50) U/L Alkaline Phosphatase 42 (38-126) U/L Albumin 3.9 (3.5-5.1) g/dL Assessment and Plan Assessment and plan (1) Brain TIA: Code(s): G45.9 - Transient cerebral ischemic attack, unspecified Status: Acute Assessment and Plan: New deficits of left-sided weakness and dysarthria discovered at 10:45 a.m. on 04/22. Last known well at 5:30 p.m. on 04/21. CTA showed focal moderate stenosis of the left P2 posterior cerebral artery. - admission for observation and telemetry - not candidate for thrombolytics due to timeframe or thrombectomy given no large vessel occlusion seen on CTA - CXR: No acute cardiopulmonary disease -head CT: 1. Old infarcts in the right cerebellum, left occipital lobe, and right basal ganglia. 2. Stable moderate nonspecific cerebral white matter disease, which likely represents chronic small vessel ischemic disease. - CTA head/neck: 1. Old infarcts involving the right cerebellum, left occipital lobe, and right basal ganglia. 2. Moderate nonspecific cerebral white matter disease, which likely represents chronic small vessel ischemic disease. 3. 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 4. 0% stenosis of the proximal internal carotid arteries relative to normal distal artery lumen diameters (NASCET criteria). - neurology consulted - Naren ALMONTE, awaiting formal recs - brain MRI ordered - echo w/Bubble done in 2021: No PFO noted, systolic and diastolic function normal, estimated EF 60-65%. - neuro checks Q4 - speech/swallow eval - monitor daily labs - A1C 7.1%, add lipid panel and UA - start Atorvastatin 40 mg PO (on 20 at home) - on Eliquis, will hold on starting Plavix 75 mg PO, ASA 81 mg - PT/OT eval and treat - consider 30 day event monitoring at discharge (2) Diabetes mellitus: Qualifiers: Diabetes mellitus complication detail: with polyneuropathy Diabetes mellitus complication status: with neurologic complications Diabetes mellitus shelter insulin use: with terminal worker use Diabetes mellitus type: type 2 Qualified Code(s): E11.42 - Type 2 diabetes mellitus with diabetic polyneuropathy; Z79.4 - MCFP (current) use of insulin Code(s): E11.9 - Type 2 diabetes mellitus without complications Status: Acute Assessment and Plan: - hypoglycemia protocol - POC blood glucose ACHS - home medication: Continue Jardiance, Lantus 30 units HS, and Janumet XR. Hold home sliding scale - correct regimen ordered - high dose TIDWM, based off BMI (previously recorded as 68 inches) = BMI of 45 - A1C 7.1% on 04/22 (3) Mixed hyperlipidemia: Code(s): E78.2 - Mixed hyperlipidemia Status: Acute Assessment and Plan: - on rosuvastatin 20 mg daily, will continue as atorvastatin 40 mg daily (see TIA) (4) Essential (primary) hypertension: Code(s): I10 - Essential (primary) hypertension Status: Acute Assessment and Plan: - chronic, currently 142/75 - continue home medications: Enalapril 10 mg - monitor (5) SELIN on CPAP: Code(s): G47.33 - Obstructive sleep apnea (adult) (pediatric); Z99.89 - Dependence on other enabling machines and devices Status: Acute Assessment and Plan: - continue home CPAP Plan Diet: Diabetic GI Prophylaxis: Not currently indicated DVT Prophylaxis: Apixaban b.i.d. Lines: Peripheral Code Status: Full code Quality VTE Prophylaxis VTE prophylaxis: pharmacologic ordered Hospitalist MIPS Advance Care Plan I have confirmed that the patient's Advanced Care Plan is present, code status is documented, or surrogate decision maker is listed in patient medical record.: Yes Medication Reconciliation I have utilized all available resources to obtain, update and review the patients current medications (includes all prescriptions, OTC, herbals, cannabis, and nutritional supplements).: Yes
[2024-04-22 16:52] LABS: Glucose Point of Care 127 mg/dl (65-105)
--- NOTE | 2024-04-22 17:04 | ADMGEN ---
This patient, Bautista Bagley, was admitted to IMU Room 204-01. Patient/family oriented to hospital policies and general routines including ID bracelet, bed and alarms, visiting hours, pain management, procedures, bathroom and other care routines, personal items, smoking policy, room service/diet, and visiting hours. Information on how to activate the Rapid Response Team has been discussed. Patient/Family are encouraged to report perceived risks to care and to ask questions if they do not understand what they are told or what they should do.
[2024-04-22 21:37] LABS: Glucose Point of Care 172 mg/dl (65-105)
[2024-04-23] VITALS (15 sets, daily range): BP systolic 110–135; BP diastolic 60–66; PULSE 84–96; RESP 18–19; TEMP 36.4–36.7; O2SAT 95–99
[2024-04-23 04:55] LABS: Basophils Absolute Auto 0.1 K/mm3 (0.0-0.1); Basophils Percent Auto 0.8 % (0.2-1.2); Eosinophils Absolute Auto 0.4 K/mm3 (0-0.3); Eosinophils Percent Auto 5.2 % (0-4.4); Hematocrit 44.1 % (42.0-52.0); Hemoglobin 14.3 g/dL (14.0-18.0); Immature Granulocyte Absolute 0.01 K/mm3 (0.00-0.031); Immature Granulocyte Percent A 0.1 % (0-0.5); Lymphocytes Absolute Auto 2.23 K/mm3 (0.9-3.2); Lymphocytes Percent Auto 28.1 % (18.3-44.2); Mean Corpuscular HGB Conc 32.4 g/dl (32-36); Mean Corpuscular Hemoglobin 28.8 pg (26-34); Mean Corpuscular Volume 88.7 fl (80-100); Mean Platelet Volume 10.8 fl (7.4-10.4); Monocytes Absolute Auto 0.7 K/mm3 (0.1-0.6); Monocytes Percent Auto 8.2 % (2.6-8.5); Neutrophils Absolute Auto 4.6 K/mm3 (1.3-6.7); Neutrophils Percent Auto 57.6 % (45.5-73.1); Platelet Count Result 152 k/mm3 (150-375); Red Blood Count 4.97 M/mm3 (4.6-6.20); Red Cell Distribution Width 13.6 % (11.5-14.5)
[2024-04-23 05:05] LABS: Anion Gap 6 mmol/L (4-12); Blood Urea Nitrogen 26 mg/dL (9-20); Calcium 8.9 mg/dL (8.4-10.2); Carbon Dioxide 25 mmol/L (22-30); Chloride 107 mmol/L (98-107); Cholesterol 115 mg/dL (0-200); Estimated CRCL calculation 60 ml/min; Estimated Glomerular Filt Rate 54; Glucose 115 mg/dL (65-110); HDL Direct 50 mg/dL; Potassium 4.3 mmol/L (3.4-5.0); Sodium 138 mmol/L (137-145); Triglycerides 102 mg/dL (<150)
[2024-04-23 05:16] LABS: LDL Cholesterol Direct 36 mg/dL
[2024-04-23] MEDS: GABAPENTIN 300 MG CAPSULE 600 MG PO ×3 (06:09→20:27)
[2024-04-23 07:19] LABS: Glucose Point of Care 142 mg/dl (65-105)
[2024-04-23] MEDS: ENALAPRIL MALEATE 10 MG TABLET PO (08:20)
[2024-04-23] MEDS: ATORVASTATIN 40 MG TABLET PO (08:20)
[2024-04-23] MEDS: EMPAGLIFLOZIN 25 MG TABLET PO (08:21)
--- NOTE | 2024-04-23 09:14 | PM.IMPN ---
Progress Note: A&P Assessment and Plan (1) Acute ischemic stroke: Code(s): I63.9 - Cerebral infarction, unspecified Status: Acute Assessment and Plan: dysarthria and gait disturbance, hx of strokes Head CT shown old infarcts in the right cerebellum, left occipital lobe, and right basal ganglia, stable moderate nonspecific cerebral white matter disease likely representing chronic small-vessel ischemic disease. Head/neck CTA showed old infarcts involving the right cerebellum, left occipital lobe, right basal ganglia, moderate nonspecific cerebral white matter disease likely representing chronic small-vessel ischemic disease, focal moderate stenosis of left P2 posterior cerebral artery, 0% stenosis in bilateral internal carotid arteries. Brain MRI showing acute infarct in the right frontoparietal region, old infarcts in the right cerebellum, left occipital lobe, right basal ganglia, and right frontoparietal region, moderate nonspecific cerebral white matter disease likely representing chronic small-vessel ischemic disease. Continue neuro checks q.4 hour continue cardiac monitoring patient was given aspirin and Plavix while in the ED Continue Lipitor, Eliquis, rosuvastatin Patient was taking Eliquis 2.5 mg daily at home and family noted that he started taking this back in 2020 when he was seen for vertigo in the ER. He had a CT scan that showed chronic infarcts and he was not on any Eliquis at that time. In the notes that shows that they prescribed Eliquis 2.5 mg tablet twice a day and was noted to have a creatinine of 1.60 with an EGFR 43 likely the reason why he was on the 2.5 dosing. After reviewing the chart all of his office visits all the way up through 04/10/2024 shows that he should of been taking Eliquis 2.5 mg twice a day. Unsure where they got the once a day dosing. 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 Code(s): E11.9 - Type 2 diabetes mellitus without complications Status: Acute Assessment and Plan: Blood sugars ranging 115-172 Hgb A1C 7.2 on 04/10/2024 Accu checks AC/HS high-dose SSI ordered continue Lantus 30 units at bedtime hold sitagliptin continue Jardiance hypoglycemic protocol in place Diabetic diet ordered (3) Mixed hyperlipidemia: Code(s): E78.2 - Mixed hyperlipidemia Status: Acute Assessment and Plan: currently on Eliquis, atorvastatin, rosuvastatin (4) Essential (primary) hypertension: Code(s): I10 - Essential (primary) hypertension Status: Acute Assessment and Plan: blood pressures ranging 110/65 to 42/70 continue enalapril (5) SELIN on CPAP: Code(s): G47.33 - Obstructive sleep apnea (adult) (pediatric); Z99.89 - Dependence on other enabling machines and devices Status: Acute Assessment and Plan: continue CPAP at night Time Spent With Patient Time with patient: Greater than 35 minutes Subjective Date/time seen: 04/23/24 09:14 Interval history: Interval history: This is a 73 year presented to hospital 04/22/2024 with dysarthria and left-sided weakness. Workup in the hospital included a head CT which showed old infarcts in the right cerebellum, left occipital lobe, and right basal ganglia, stable moderate nonspecific cerebral white matter disease consistent with chronic vessel ischemic disease. Head and neck CTA showed old infarcts involving the right cerebellum, left occipital lobe, and right basal ganglia, moderate nonspecific cerebral white matter disease representing chronic small-vessel ischemic disease, 0% stenosis in bilateral proximal internal carotid arteries , focal moderate stenosis of left P2 posterior cerebral artery. Chest x-ray was negative. Brain MRI showed acute infarct in the right frontoparietal region, old infarcts in the right cerebellum, left occipital lobe, right basal ganglia and right frontoparietal region, moderate nonspecific cerebral white matter disease likely representing chronic small-vessel ischemic disease. Initial labs showed a normal white blood count of 8.1, creatinine 1.60> 1.30, EGFR 54, blood sugars ranging 127-165, hemoglobin A1c 7.1, troponin was negative. EKG showed normal sinus rhythm with right bundle branch block, left anterior fascicular block with a rate of 91, QTC 461. Patient was started on aspirin and Plavix. He is currently on atorvastatin 40 mg daily. Subjective: Patient denies any fever, chills, nausea, vomiting, diarrhea, abdominal pain, chest pain, shortness a breath. He also denies any lightheadedness, dizziness, headache, vision changes, weakness, decreased sensation. Patient endorses some dysphagia and gait disturbance. Labs and imaging reviewed. Review of Systems Review of Systems: All systems reviewed & are unremarkable except as noted in HPI and below Constitutional: Constitutional: Reports as per HPI and Reports no additional constitutional complaints Eyes: Eyes: Reports as per HPI and Reports no additional eye complaints ENT: Reports system reviewed and no additional complaints, except as documented and Reports as per HPI Cardiovascular: Cardiovascular: Reports as per HPI and Reports no additional cardiovascular complaints Respiratory: Respiratory: Reports as per HPI and Reports no additional respiratory complaints Gastrointestinal: Gastrointestinal: Reports as per HPI and Reports no additional gastrointestinal complaints Genitourinary: Genitourinary: Reports no additional male genitourinary complaints and Reports as per HPI Musculoskeletal: Musculoskeletal: Reports no additional musculoskeletal complaints and Reports as per HPI Integumentary/Breasts: Skin/Breast: Reports system reviewed and no additional complaints, except as docu and Reports as per HPI Neurologic: Reports system reviewed and no additional complaints, except as documented and Reports as per HPI Psychiatric: Psychiatric: Reports no additional psychiatric complaints and Reports as per HPI Exam Narrative: General: In no acute distress, well nourished Head: atraumatic, no encephalopathy Eyes: EOMI, PERRLA, sclera clear, denies any vision changes ENT: moist mucous membranes, nasal passages clear Neck: supple, no JVD, no adenopathy, trachea midline Cardiac: Normal S1 and S2., No murmur, gallops or friction rubs, peripheral pulses intact. Respiratory: Lungs clear to auscultation, no adventitious lung sounds, currently on room air Gastrointestinal: soft, non-distended, non-tender, normoactive bowel sounds. : voiding without difficulty. Extremities: moves all extremities well, left lower extremity weakness 4/5 versus 5/5 on the right lower extremity Skin: clean, dry, intact. No wounds or lesions. Neuro: Alert and oriented x4, cranial nerves intact, no neuro deficits, no facial droop, facial features are symmetrical. Psych: normal mood, normal affect, interactive Objective Data Vital Signs Vital Signs: Vital Signs - 24 hr 04/22/24 12:05 04/22/24 14:57 04/22/24 16:55 Temperature 97.5 F L 97.5 F L Pulse Rate 93 76 80 Respiratory Rate 16 16 20 Blood Pressure 134/68 142/75 H 154/87 H Pulse Oximetry 97 95 97 Oxygen Delivery 04/22/24 18:00 04/22/24 18:51 04/22/24 20:00 Temperature 97.5 F L Pulse Rate 82 85 Respiratory Rate 20 Blood Pressure 126/50 L Pulse Oximetry 96 Oxygen Delivery Room Air 04/23/24 00:00 04/23/24 00:00 04/22/24 20:00 Temperature 98.0 F Pulse Rate 84 97 Respiratory Rate 19 Blood Pressure 135/61 Pulse Oximetry 99 Oxygen Delivery Room Air 04/22/24 22:00 04/23/24 00:00 04/23/24 02:00 Temperature Pulse Rate 82 84 85 Respiratory Rate Blood Pressure Pulse Oximetry Oxygen Delivery 04/23/24 04:00 04/23/24 04:00 04/23/24 04:00 Temperature 97.9 F Pulse Rate 87 85 Respiratory Rate 18 Blood Pressure 110/65 Pulse Oximetry 98 Oxygen Delivery Room Air 04/23/24 06:00 04/23/24 07:26 Temperature 97.9 F Pulse Rate 86 85 Respiratory Rate 18 Blood Pressure 115/62 Pulse Oximetry 98 Oxygen Delivery Intake/Output Intake/Output: Intake & Output 04/20/24 04/21/24 04/22/24 04/23/24 23:59 23:59 23:59 23:59 Intake Total 300 350 Output Total 900 Balance 300 -550 Meds/Results Medications: Active Medications Generic Name Dose Route Start Last Admin Trade Name Freq PRN Reason Stop Dose Admin Acetaminophen 650 mg 04/22/24 14:50 Acetaminophen 325 Mg Tablet PO Q4H PRN Mild Pain (1-3) or Fever Atorvastatin Calcium 40 mg 04/23/24 09:00 04/23/24 08:20 Atorvastatin 40 Mg Tablet PO 40 mg DAILY CHANTAL Administration Dextrose 12.5 gm 04/22/24 14:50 Dextrose 50% 25 Gm/50 Ml Syringe IV PUSH PRN PRN Hypoglycemia Protocol Dextrose 12.5 gm 04/22/24 16:44 Dextrose 50% 25 Gm/50 Ml Syringe IV PUSH PRN PRN Hypoglycemia Protocol Empagliflozin 25 mg 04/23/24 09:00 04/23/24 08:21 Empagliflozin 25 Mg Tablet PO 25 mg DAILY CHANTAL Administration Enalapril Maleate 10 mg 04/23/24 09:00 04/23/24 08:20 Enalapril Maleate 10 Mg Tablet PO 10 mg DAILY CHANTAL Administration Gabapentin 600 mg 04/23/24 06:00 04/23/24 06:09 Gabapentin 300 Mg Capsule PO 600 mg Q8HR CHANTAL Administration Glucagon 1 mg 04/22/24 14:50 Glucagon For Inj 1 Mg Vial IM PRN PRN Hypoglycemia Protocol Glucagon 1 mg 04/22/24 16:44 Glucagon For Inj 1 Mg Vial IM PRN PRN Hypoglycemia Protocol Glucose 15 gm 04/22/24 14:50 Glucose Oral Gel 15 Gm Of Glucse In 37.5 Gm Tube PO PRN PRN Hypoglycemia Protocol Glucose 15 gm 04/22/24 16:44 Glucose Oral Gel 15 Gm Of Glucse In 37.5 Gm Tube PO PRN PRN Hypoglycemia Protocol Dextrose 1,000 mls @ 100 mls/hr 04/22/24 14:50 Dextrose 5% 1,000 Ml IVPB PRN PRN Hypoglycemia Protocol Dextrose 1,000 mls @ 100 mls/hr 04/22/24 16:44 Dextrose 5% 1,000 Ml IVPB PRN PRN Hypoglycemia Protocol Insulin Aspart 4 - 8 units 04/22/24 17:00 04/23/24 07:26 Insulin Aspart (*Bkc) 100 Units/Ml SUB-Q Not Given TIDWM [facility] Protocol Insulin Glargine 30 units 04/23/24 21:00 Insulin Glargine (*Bkc) 100 Units/Ml SUB-Q QHS [facility] Miscellaneous Information 0 each 04/23/24 00:01 04/23/24 08:25 Janumet Xr Nonform Can Pt Bring From Home? XX 05/23/24 00:00 Not Given CLARIFY [facility] Non-Formulary Medication 1 tablet 04/22/24 23:45 Sitagliptin Phos-Metformin [Janumet Xr] PO 05/22/24 23:44 Q12H [facility] Ondansetron HCl 4 mg 04/22/24 14:50 Ondansetron Inj 4 Mg/2 Ml Vial IV PUSH Q4H PRN Nausea Radiology Results: ITS Impressions Head CT 04/22/24 12:01 IMPRESSION: 1. Old infarcts in the right cerebellum, left occipital lobe, and right basal ganglia. 2. Stable moderate nonspecific cerebral white matter disease, which likely represents chronic small vessel ischemic disease. Head/Neck CTA 04/22/24 12:05 IMPRESSION: 1. Old infarcts involving the right cerebellum, left occipital lobe, and right basal ganglia. 2. Moderate nonspecific cerebral white matter disease, which likely represents chronic small vessel ischemic disease. 3. 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 4. 0% stenosis of the proximal internal carotid arteries relative to normal distal artery lumen diameters (NASCET criteria). Chest X-Ray 04/22/24 12:13 IMPRESSION: 1. No acute cardiopulmonary disease. Brain MRI 04/23/24 09:03 IMPRESSION: 1. Acute infarct in the right frontoparietal region. 2. Old infarcts in the right cerebellum, left occipital lobe, right basal ganglia, and right frontoparietal region. 3. Moderate nonspecific cerebral white matter disease, which likely represents chronic small vessel ischemic disease. Labs Labs: Laboratory Results - last 24 hr 04/22/24 04/22/24 04/22/24 11:40 11:41 11:41 WBC 8.1 RBC 4.97 Hgb 14.4 Hct 44.5 MCV 89.5 MCH 29.0 MCHC 32.4 RDW 13.6 Plt Count 160 MPV 11.2 H Immature Gran % (Auto) 0.4 Neut % (Auto) 63.2 Lymph % (Auto) 24.8 Mckenzie % (Auto) 6.2 Eos % (Auto) 4.7 H Baso % (Auto) 0.7 Lymph # (Auto) 2.00 Mckenzie # (Auto) 0.5 Eos # (Auto) 0.4 H Baso # (Auto) 0.1 Abs Immat Gran (auto) 0.03 Absolute Neuts (auto) 5.1 Absolute Nucleated RBC 0.000 Nucleated RBC % 0.0 PT 14.1 INR 1.0 APTT 25.8 Sodium Potassium Chloride Carbon Dioxide Anion Gap BUN Creatinine Estim Creat Clear Calc Estimated GFR Glucose POC Capillary Glucose Hemoglobin A1c 7.1 H Calcium Total Bilirubin AST ALT Alkaline Phosphatase Troponin I Cancelled < 0.012 Total Protein Albumin Triglycerides Cholesterol LDL Cholesterol Direct HDL Direct 04/22/24 04/22/24 04/22/24 11:47 12:33 16:49 WBC RBC Hgb Hct MCV MCH MCHC RDW Plt Count MPV Immature Gran % (Auto) Neut % (Auto) Lymph % (Auto) Mckenzie % (Auto) Eos % (Auto) Baso % (Auto) Lymph # (Auto) Mckenzie # (Auto) Eos # (Auto) Baso # (Auto) Abs Immat Gran (auto) Absolute Neuts (auto) Absolute Nucleated RBC Nucleated RBC % PT INR APTT Sodium 137 Potassium 4.8 Chloride 105 Carbon Dioxide 26 Anion Gap 6 BUN 31 H Creatinine 1.60 H 1.30 Estim Creat Clear Calc Not Reportable Not Reportable Estimated GFR 42 L 54 L Glucose 165 H POC Capillary Glucose 127 H Hemoglobin A1c Calcium 9.0 Total Bilirubin 0.9 AST 24 ALT 18 Alkaline Phosphatase 42 Troponin I Total Protein 7.0 Albumin 3.9 Triglycerides Cholesterol LDL Cholesterol Direct HDL Direct 04/22/24 04/23/24 04/23/24 21:00 04:42 07:16 WBC 8.0 RBC 4.97 Hgb 14.3 Hct 44.1 MCV 88.7 MCH 28.8 MCHC 32.4 RDW 13.6 Plt Count 152 MPV 10.8 H Immature Gran % (Auto) 0.1 Neut % (Auto) 57.6 Lymph % (Auto) 28.1 Mckenzie % (Auto) 8.2 Eos % (Auto) 5.2 H Baso % (Auto) 0.8 Lymph # (Auto) 2.23 Mckenzie # (Auto) 0.7 H Eos # (Auto) 0.4 H Baso # (Auto) 0.1 Abs Immat Gran (auto) 0.01 Absolute Neuts (auto) 4.6 Absolute Nucleated RBC 0.000 Nucleated RBC % 0.0 PT INR APTT Sodium 138 Potassium 4.3 Chloride 107 Carbon Dioxide 25 Anion Gap 6 BUN 26 H Creatinine 1.30 Estim Creat Clear Calc 60 Estimated GFR 54 L Glucose 115 H POC Capillary Glucose 172 H 142 H Hemoglobin A1c Calcium 8.9 Total Bilirubin AST ALT Alkaline Phosphatase Troponin I Total Protein Albumin Triglycerides 102 Cholesterol 115 LDL Cholesterol Direct 36 HDL Direct 50 Quality VTE Prophylaxis VTE prophylaxis: pharmacologic ordered
--- NOTE | 2024-04-23 10:14 | PHAR ---
Pharmacy reviewed home med: * Use from home * Sitagliptin Phos-Metformin [Janumet Xr] 50-1,000 mg tablet - take 2 tablets by mouth once daily
[2024-04-23] MEDS: APIXABAN 5 MG TABLET BY MOUTH ×2 (11:00→20:27)
[2024-04-23] MEDS: ROSUVASTATIN 20 MG TABLET PO (11:00)
[2024-04-23] MEDS: SITAGLIPTIN PHOS METFORMIN 2 EACH PO (11:01)
--- NOTE | 2024-04-23 11:30 | PCSTNOTE ---
Please refer to the Bedside Swallow Evaluation in the EMR. Please note, silent aspiration cannot be ruled out at bedside.
[2024-04-23 11:33] LABS: Glucose Point of Care 168 mg/dl (65-105)
[2024-04-23 12:07] LABS: Add Urine Microscopic? NO; Appearance Urine Clear (Clear); Bilirubin Urine Negative (Negative); Blood Urine Negative (Negative); Color Urine Yellow (Yellow); Glucose Urine UA 3+ mg/dL (Negative); Ketones Urine Negative (Negative); Leukocyte Esterase Ur Negative LEU/UL (Negative); Nitrate Urine Negative (Negative); Protein Urine Negative (Negative); Specific Grav Ur 1.026 (1.001-1.035); Urobilinogen Urine 0.2 mg/dL (<2.0)
[2024-04-23 14:52] LABS: Glucose Point of Care 179 mg/dl (65-105)
[2024-04-23 20:18] LABS: Glucose Point of Care 156 mg/dl (65-105)
[2024-04-23] MEDS: INSULIN GLARGINE (*BKC) 100 UNITS/ML 30 UNITS SUB-Q (20:27)
[2024-04-24] VITALS (10 sets, daily range): BP systolic 125–143; BP diastolic 69–84; PULSE 73–87; RESP 18–20; TEMP 33.8–36.4; O2SAT 94–98
[2024-04-24] MEDS: GABAPENTIN 300 MG CAPSULE 600 MG PO (06:15)
[2024-04-24 08:12] LABS: Glucose Point of Care 124 mg/dl (65-105)
--- NOTE | 2024-04-24 08:12 | P.PNIM_ITS ---
Progress Note: A&P Assessment and Plan (1) Acute ischemic stroke: Code(s): I63.9 - Cerebral infarction, unspecified Status: Acute Assessment and Plan: dysarthria and gait disturbance, hx of strokes. 04/[address] old infarcts in the right cerebellum, left occipital lobe, and right basal ganglia, stable moderate nonspecific cerebral white matter disease likely representing chronic small-vessel ischemic disease. 04/22 Head/neck CTA showed old infarcts involving the right cerebellum, left occipital lobe, right basal ganglia, moderate nonspecific cerebral white matter disease likely representing chronic small-vessel ischemic disease, focal moderate stenosis of left P2 posterior cerebral artery, 0% stenosis in bilateral internal carotid arteries. 04/23 Brain MRI 1. Acute infarct in the right frontoparietal region. 2. Old infarcts in the right cerebellum, left occipital lobe, right basal ganglia, and right frontoparietal region. 3. Moderate nonspecific cerebral white matter disease, which likely represents chronic small vessel ischemic disease. Tele Sinus arrhythmia, regular rate S/p ASA & Plavix in the ED Changed home Eliquis 2.5mg BID to 5mg BID for improved renal function Continue Atorvastatin 40mg--increase to 80mg, stop rosuvastatin. 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 use Diabetes mellitus complication status: with neurologic complications Diabetes mellitus complication detail: with polyneuropathy Qualified Code(s): E11.42 - Type 2 diabetes mellitus with diabetic polyneuropathy; Z79.4 - intermediate designer (current) use of insulin Code(s): E11.9 - Type 2 diabetes mellitus without complications Status: Acute Assessment and Plan: Blood sugars controlled, ranging 115-172 Home meds: Lantus 30 daily, Janumet 50-1000mg BID, Jardiance 25mg 04/10/24 A1c 7.2 Continue Jardiance * Accu checks AC/HS, hypoglycemic protocol * high-dose SSI ordered * Add lispro 3 TID, Decrease Lantus from 30 to 20 units hs * Continue Janumet & jardiance * Diabetic diet ordered (3) Mixed hyperlipidemia: Code(s): E78.2 - Mixed hyperlipidemia Status: Acute Assessment and Plan: Currently on Eliquis, atorvastatin, rosuvastatin. * Increase atorvastatin 40<80mg * Stop rosuvastatin (4) Essential (primary) hypertension: Code(s): I10 - Essential (primary) hypertension Status: Acute Assessment and Plan: blood pressures controlled, 133/72-142/73 * continue enalapril 10mg daily (5) SELIN on CPAP: Code(s): G47.33 - Obstructive sleep apnea (adult) (pediatric); Z99.89 - Dependence on other enabling machines and devices Status: Acute Assessment and Plan: continue CPAP at night Time Spent With Patient Time: 58 minutes Subjective Date/time seen: 04/24/24 08:12 Interval history: Ate breakfast this morning. Voiding. Had a normal BM yesterday. Using a walker but needs standby assist when getting up and is slightly unsteady. Patient reports mobility is not at baseline. Otherwise, VSS and blood sugars controlled on current medications. Hospital course: This is a 73 year presented to hospital 04/22/2024 with dysarthria and left- sided weakness. Workup in the hospital included a head CT which showed old infarcts in the right cerebellum, left occipital lobe, and right basal ganglia, stable moderate nonspecific cerebral white matter disease consistent with chronic vessel ischemic disease. Head and neck CTA showed old infarcts involving the right cerebellum, left occipital lobe, and right basal ganglia, m oderate nonspecific cerebral white matter disease representing chronic small- vessel ischemic disease, 0% stenosis in bilateral proximal internal carotid arteries , focal moderate stenosis of left P2 posterior cerebral artery. Chest x-ray was negative. Brain MRI showed acute infarct in the right frontoparietal region, old infarcts in the right cerebellum, left occipital lobe, right basal ganglia and right frontoparietal region, moderate nonspecific cerebral white matter disease likely representing chronic small-vessel ischemic disease. Initial labs showed a normal white blood count of 8.1, creatinine 1.60> 1.30, EGFR 54, blood sugars ranging 127-165, hemoglobin A1c 7.1, troponin was negative. EKG showed normal sinus rhythm with right bundle branch block, left anterior fascicular block with a rate of 91, QTC 461. Patient was started on aspirin and Plavix. He is currently on atorvastatin 40 mg daily. Subjective: Patient denies any fever, chills, nausea, vomiting, diarrhea, abdominal pain, chest pain, shortness a breath. He also denies any lightheadedness, dizziness, headache, vision changes, weakness, decreased sensation. Patient endorses some dysphagia and gait disturbance. Labs and imaging reviewed. Exam Narrative: General: In no acute distress, well nourished Head: atraumatic, no encephalopathy Eyes: EOMI, PERRLA, sclera clear, denies any vision changes ENT: moist mucous membranes, nasal passages clear Neck: supple, no JVD, no adenopathy, trachea midline Cardiac: Normal S1 and S2., No murmur, gallops or friction rubs, peripheral pulses intact. Respiratory: Lungs clear to auscultation, no adventitious lung sounds, currently on room air Gastrointestinal: soft, non-distended, non-tender, normoactive bowel sounds. : voiding without difficulty. Extremities: moves all extremities well, left lower extremity weakness 4/5 versus 5/5 on the right lower extremity Skin: clean, dry, intact. No wounds or lesions. Neuro: Alert and oriented x4, cranial nerves intact, no facial droop, facial features are symmetrical. Dysarthria, unsteady gait Psych: normal mood, normal affect, interactive Const: General: comfortable and no acute distress Other: , male, nontoxic appears HENMT: Face/Nose/Sinus: Normal nares present Mouth: Yes moist mucous membranes Eyes: General: appearance normal, both eyes and all related structures Sclera: sclerae normal Pupils: Equal, round and reactive pupils present EOM: EOMs intact bilaterally Resp: Effort & Inspection: normal respiratory effort Auscultation: clear to auscultation bilaterally Cardio: Rate: regular rate Rhythm: regular rhythm Other: S1-S2 present without murmur, rub, ectopy GI: Other: Abdomen rounded, soft, and normoactive bowel sounds in all quadrants. Skin: General skin exam: normal color and no rashes or lesions noted Wounds: no wounds Neuro: Cranial nerves: Yes Equal, round and reactive pupils present Other: Initial NIHSS 1a: Level of Consciousness 0 1b: LOC Questions 0 1c:?LOC Tasks 0 2:?Best Gaze 0 3:?Visual?Nelson 0 4: Facial Palsy 0 5a: Motor Arm?R 0 5b: Motor Arm L 0 6a:?Motor Leg R 0 6a:?Motor Leg L 0 7: Limb Ataxia 0 8: Sensation 0 9:?Language/Aphasia 0 10:?Dysarthria?0 11: Extinction and Inattention 0 total 0 No dysarthria, facial droop, focal deficits, focal numbness on exam. A&O x4. Extrem: General: normal to inspection Psych: Mental Status: mental status grossly normal Affect: normal affect Other: Good insight and judgment, pleasant Objective Data Vital Signs Vital Signs: Vital Signs - 24 hr 04/23/24 10:47 04/23/24 12:00 04/23/24 12:00 Temperature 97.8 F Pulse Rate 94 96 Respiratory Rate 18 Blood Pressure 118/64 Pulse Oximetry 95 98 Oxygen Delivery Room Air 04/23/24 10:00 04/23/24 13:58 04/23/24 14:20 Temperature Pulse Rate 92 Respiratory Rate Blood Pressure Pulse Oximetry Oxygen Delivery Room Air Room Air 04/23/24 14:00 04/23/24 16:00 04/23/24 18:39 Temperature 97.6 F Pulse Rate 94 87 90 Respiratory Rate 18 Blood Pressure 112/66 Pulse Oximetry 98 Oxygen Delivery 04/23/24 20:00 04/23/24 20:00 04/23/24 21:55 Temperature Pulse Rate 86 87 Respiratory Rate Blood Pressure Pulse Oximetry Oxygen Delivery Room Air 04/23/24 23:35 04/23/24 23:49 04/24/24 00:00 Temperature 97.7 F Pulse Rate 86 84 Respiratory Rate 18 Blood Pressure 135/60 Pulse Oximetry 95 Oxygen Delivery Room Air 04/24/24 02:00 04/24/24 04:08 04/24/24 04:00 Temperature 97.3 F L Pulse Rate 78 82 Respiratory Rate 20 Blood Pressure 133/72 Pulse Oximetry 98 Oxygen Delivery Room Air 04/24/24 04:00 Temperature Pulse Rate 85 Respiratory Rate Blood Pressure Pulse Oximetry Oxygen Delivery Intake/Output Intake/Output: Intake & Output 04/21/24 04/22/24 04/23/24 04/24/24 23:59 23:59 23:59 23:59 Intake Total 300 1380 240 Output Total 1700 Balance 300 -320 240 Meds/Results Medications: Active Medications Generic Name Dose Route Start Last Admin Trade Name Freq PRN Reason Stop Dose Admin Acetaminophen 650 mg 04/22/24 14:50 Acetaminophen 325 Mg Tablet PO Q4H PRN Mild Pain (1-3) or Fever Apixaban 5 mg 04/23/24 10:30 04/23/24 20:27 Apixaban 5 Mg Tablet BY MOUTH 5 mg Q12HR CHANTAL Administration Atorvastatin Calcium 40 mg 04/23/24 09:00 04/23/24 08:20 Atorvastatin 40 Mg Tablet PO 40 mg DAILY CHANTAL Administration Dextrose 12.5 gm 04/22/24 14:50 Dextrose 50% 25 Gm/50 Ml Syringe IV PUSH PRN PRN Hypoglycemia Protocol Empagliflozin 25 mg 04/23/24 09:00 04/23/24 08:21 Empagliflozin 25 Mg Tablet PO 25 mg DAILY CHANTAL Administration Enalapril Maleate 10 mg 04/23/24 09:00 04/23/24 08:20 Enalapril Maleate 10 Mg Tablet PO 10 mg DAILY CHANTAL Administration Gabapentin 600 mg 04/23/24 06:00 04/24/24 06:15 Gabapentin 300 Mg Capsule PO 600 mg Q8HR CHANTAL Administration Glucagon 1 mg 04/22/24 14:50 Glucagon For Inj 1 Mg Vial IM PRN PRN Hypoglycemia Protocol Glucose 15 gm 04/22/24 14:50 Glucose Oral Gel 15 Gm Of Glucse In 37.5 Gm Tube PO PRN PRN Hypoglycemia Protocol Dextrose 1,000 mls @ 100 mls/hr 04/22/24 14:50 Dextrose 5% 1,000 Ml IVPB PRN PRN Hypoglycemia Protocol Insulin Aspart 4 - 8 units 04/22/24 17:00 04/24/24 08:01 Insulin Aspart (*Bkc) 100 Units/Ml SUB-Q Not Given TIDWM CHANTAL Protocol Insulin Glargine 30 units 04/23/24 21:00 04/23/24 20:27 Insulin Glargine (*Bkc) 100 Units/Ml SUB-Q 30 units QHS CHANTAL Administration * Home Med * 2 tablet 04/23/24 10:15 04/23/24 11:01 Sitagliptin Phos- PO 05/23/24 10:14 2 tablet Metformin [Janumet DAILY CHANTAL Administration Xr] 50-1,000 Mg Tablet Ondansetron HCl 4 mg 04/22/24 14:50 Ondansetron Inj 4 Mg/2 Ml Vial IV PUSH Q4H PRN Nausea Rosuvastatin Calcium 20 mg 04/23/24 10:20 04/23/24 11:00 Rosuvastatin 20 Mg Tablet PO 20 mg DAILY CHANTAL Administration Radiology Results: ITS Impressions Head CT 12/07/24 12:01 IMPRESSION: 1. Old infarcts in the right cerebellum, left occipital lobe, and right basal ganglia. 2. Stable moderate nonspecific cerebral white matter disease, which likely represents chronic small vessel ischemic disease. Head/Neck CTA 04/22/24 12:05 IMPRESSION: 1. Old infarcts involving the right cerebellum, left occipital lobe, and right basal ganglia. 2. Moderate nonspecific cerebral white matter disease, which likely represents chronic small vessel ischemic disease. 3. 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 4. 0% stenosis of the proximal internal carotid arteries relative to normal distal artery lumen diameters (NASCET criteria). Chest X-Ray 04/22/24 12:13 IMPRESSION: 1. No acute cardiopulmonary disease. Brain MRI 04/23/24 09:03 IMPRESSION: 1. Acute infarct in the right frontoparietal region. 2. Old infarcts in the right cerebellum, left occipital lobe, right basal ganglia, and right frontoparietal region. 3. Moderate nonspecific cerebral white matter disease, which likely represents chronic small vessel ischemic disease. Labs Labs: Laboratory Results - last 24 hr 04/23/24 04/23/24 04/23/24 11:31 11:41 14:45 POC Capillary Glucose 168 H 179 H Urine Color Yellow Urine Appearance Clear Urine pH 6.0 Ur Specific [place] 1.026 Urine Protein Negative Urine Glucose (UA) 3+ H Urine Ketones Negative Ur Blood (Man) Negative Urine Nitrate Negative Urine Bilirubin Negative Urine Urobilinogen 0.2 Leukocyte Esterase Rfl Negative 04/23/24 20:15 POC Capillary Glucose 156 H Urine Color Urine Appearance Urine pH Ur Specific [place] Urine Protein Urine Glucose (UA) Urine Ketones Ur Blood (Man) Urine Nitrate Urine Bilirubin Urine Urobilinogen Leukocyte Esterase Rfl Quality VTE Prophylaxis VTE prophylaxis: pharmacologic ordered Hospitalist MIPS Advance Care Plan I have confirmed that the patient's Advanced Care Plan is present, code status is documented, or surrogate decision maker is listed in patient medical record.: Yes Medication Reconciliation I have utilized all available resources to obtain, update and review the patients current medications (includes all prescriptions, OTC, herbals, cannabis, and nutritional supplements).: Yes
[2024-04-24] MEDS: ROSUVASTATIN 20 MG TABLET PO (08:14)
[2024-04-24] MEDS: APIXABAN 5 MG TABLET BY MOUTH (08:14)
[2024-04-24] MEDS: ENALAPRIL MALEATE 10 MG TABLET PO (08:14)
[2024-04-24] MEDS: EMPAGLIFLOZIN 25 MG TABLET PO (08:14)
[2024-04-24] MEDS: ATORVASTATIN 40 MG TABLET PO (08:14)
[2024-04-24] MEDS: SITAGLIPTIN PHOS METFORMIN 2 EACH PO (08:15)
[2024-04-24 12:01] LABS: Glucose Point of Care 136 mg/dl (65-105)
--- NOTE | 2024-04-24 12:23 | WPDNEURCNPN ---
Assessment and Plan Assessment and plan (1) Acute ischemic right MCA stroke: Code(s): I63.511 - Cerebral infarction due to unspecified occlusion or stenosis of right middle cerebral artery Status: Acute Assessment and Plan: acute infarct has been noted in the right frontoparietal area on DWI sequence. 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 Diabetes mellitus complication status: with neurologic complications Diabetes mellitus complication detail: with polyneuropathy Qualified Code(s): E11.42 - Type 2 diabetes mellitus with diabetic polyneuropathy; Z79.4 - jail (current) use of insulin Code(s): E11.9 - Type 2 diabetes mellitus without complications Status: Acute (3) Cerebrovascular accident (CVA): Qualifiers: CVA mechanism: occlusion Precerebral and cerebral artery: middle cerebral artery Laterality of affected vessel: bilateral Qualified Code(s): I63.513 - Cerebral infarction due to unspecified occlusion or stenosis of bilateral middle cerebral arteries Code(s): I63.9 - Cerebral infarction, unspecified Status: Acute Assessment and Plan: MRI of the brain shows old infarct in the right cerebellum and left occipital lobe and right basal ganglia and right frontal parietal area . Also some diffuse changes were noted on both sides the cerebral hemispheres. (4) SELIN on CPAP: Code(s): G47.33 - Obstructive sleep apnea (adult) (pediatric); Z99.89 - Dependence on other enabling machines and devices Status: Acute Plan The patient appears to have significant the findings suggestive cerebrovascular disease. I would suggest to continue with aspirin Plavix and 80 mg of atorvastatin and the goal should be to keep his LDL under 60 T5. We should discontinue oral anticoagulants since there is no history of cardiac source of embolization. If a cardiac source has been demonstrated certainly that would be an acceptable treatment. Most recent LDL on 04/23/2024 only 36. Patient has shown improvement since admission. He should be followed up as an outpatient considering the risk factors the number of infarcts anti filed on the MRI of the brain. Consult date: 04/24/24 HPI: Bautista Bagley is a 73 year old male With history of the sudden onset of dysarthria and left-sided weakness for which he was admitted to the hospital on 04/22/2024. Since that time his symptoms have improved to some extent. The speech difficulty still remains partially. His was present the time of the evaluation. He has history of diabetes mellitus and chronic kidney disease and obstructive sleep apnea syndrome however he is compliant with the CPAP. CT angiogram of the head and neck shows a in narrowing of the left P2 segment of the posterior cerebral artery. CT scan of brain shows some old infarct. MRI of the brain shows infarct in the right frontal parietal area. His creatinine was 1.30. Patient denies any headache or diplopia or difficulty with swallowing. He is able to walk with a walker. He is undergoing physical therapy. No history of prior stroke. However his was told that he has had [address] scan in the past. Is started on anticoagulation in 2020 by a physician based upon the finding of stroke on the brain scan and he was told that he can can take low-dose anticoagulation for that reason. However there is no history of cardiac valve problems or atrial fibrillation or any cardiac arrhythmia to the best of his 's knowledge. Review of Systems Constitutional: Constitutional: Denies chills, Denies fever(s) and Denies weight loss Eyes: Eyes: Denies diplopia and Denies loss of vision ENT: Denies dizziness, Denies hearing loss and Denies tinnitus Cardiovascular: Cardiovascular: Denies chest pain, Denies syncope and Denies dyspnea Respiratory: Respiratory: Denies cough, Denies dyspnea and Denies wheezing Gastrointestinal: Gastrointestinal: Denies abdominal pain, Denies change in bowel habits and Denies vomiting Genitourinary: Genitourinary: Denies urinary incontinence Musculoskeletal: Musculoskeletal: Denies arthralgias and Denies joint swelling Integumentary/Breasts: Skin/Breast: Denies new lesions and Denies rash Neurologic: Reports as per HPI, Denies dizziness, Denies syncope and Denies loss of vision Psychiatric: Psychiatric: Denies anxiety and Denies depression Endocrine: Endocrine: Denies cold intolerance and Denies heat intolerance Hematologic/Lymphatic: Hematologic/Lymphatic: Denies easy bleeding and Denies easy bruising Allergic/Immunologic: Allergic/Immunologic: Denies no additional allergic/immunologic complaints and Denies wheezing PMFSH Past Medical History Medical History (Updated 04/24/24 @ 12:30 by Vanita Mccann MD) Acute ischemic right MCA stroke Bilateral primary osteoarthritis of knee Cellulitis of great toe of left foot Cerebrovascular accident (CVA) Chronic osteomyelitis of toe of left foot CKD stage 3 due to type 2 diabetes mellitus Diabetes mellitus Diabetic polyneuropathy associated with type 2 diabetes mellitus Diabetic ulcer of toe Dyspnea Essential (primary) hypertension Mixed hyperlipidemia SELIN on CPAP Screen for colon cancer Screening for prostate cancer Strain of calf muscle Wound, open, toe Surgical History Surgical History H/O knee surgery Family History Family History Father Family history of throat cancer Tobacco abuse Failure to thrive in adult Grandparent Diabetes mellitus Mother COPD (chronic obstructive pulmonary disease) Tobacco abuse Sibling , Onset Age: 24 motorcycle accident Tobacco abuse Other Family history of lung disease Family history of malignant neoplasm Pain of toe Social History Social History Smoking packs per day: 1 Smoking cigarettes per day: 20.0 Years smoked: 2 Smoking pack-years: 2.00 Smoking status: Former smoker Second hand tobacco smoke exposure: Yes Alcohol intake: current Drinks per week: 1 Substance use: never Substance use type: does not use Do You Feel Safe in your Home?: Yes Lack of Transportation: No Lack of Food: Never True Current Housing: I Have Housing Concerned About Future Housing: No Difficulty Paying Gas/Electric Bills: No Difficulty Paying for Meds: No Currently Unemployed: No Education: Decline to Answer Difficulty w/ Childcare or Family Care: No Living arrangements: with family Occupation/Education: retired 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 Gender identity (if verbalized by the patient): Male Spiritual care concerns: No Meds Home Medications and Allergies Home Medications Medication Instructions Recorded Confirmed Type diphenhydramine HCl 25 mg tablet 25 mg PO Q12H 04/25/20 04/22/24 History (Benadryl Allergy) flash glucose sensor (FreeStyle #6 ea 02/09/23 04/22/24 Rx Osiel 2 Sensor kit) enalapril maleate 10 mg tablet 10 mg PO DAILY #90 tabs 06/10/23 04/22/24 Rx insulin lispro 100 unit/mL See Rx Instructions subcut .QAC & 09/02/23 04/22/24 Rx subcutaneous pen (Humalog KwikPen QHS #15 mL (U-100) Insulin) pen needle, diabetic 31 gauge x #300 ea 11/11/23 04/22/24 Rx 3/16 (BD Ultra-Fine Mini Pen Needle) rosuvastatin 20 mg tablet 20 mg PO DAILY #90 tabs 12/27/23 04/22/24 Rx gabapentin 300 mg capsule 600 mg PO TID #540 caps 03/06/24 04/22/24 Rx apixaban 2.5 mg tablet (Eliquis) 2.5 mg PO DAILY 04/22/24 04/22/24 History empagliflozin 25 mg tablet 25 mg PO DAILY 04/22/24 04/22/24 History (Jardiance) insulin glargine 100 unit/mL (3 30 unit subcut QHS 04/22/24 04/22/24 History mL) subcutaneous pen (Lantus Solostar U-100 Insulin) sitagliptin phos 50 mg-metformin 1 tablet PO Q12H 04/22/24 04/22/24 History ER 1,000 mg tablet,extend rel 24h mp (Janumet XR) Allergies Allergy/AdvReac Type Severity Reaction Status Date / Time pregabalin AdvReac Intermediate Cramping Verified 04/22/24 12:06 of the Muscles Vital Signs Vital Signs - 24 hr 04/23/24 13:58 04/23/24 14:20 04/23/24 14:00 Temperature Pulse Rate 94 Respiratory Rate Blood Pressure Pulse Oximetry Oxygen Delivery Room Air Room Air 04/23/24 16:00 04/23/24 18:39 04/23/24 20:00 Temperature 97.6 F Pulse Rate 87 90 Respiratory Rate 18 Blood Pressure 112/66 Pulse Oximetry 98 Oxygen Delivery Room Air 04/23/24 20:00 04/23/24 21:55 04/23/24 23:35 Temperature 97.7 F Pulse Rate 86 87 86 Respiratory Rate 18 Blood Pressure 135/60 Pulse Oximetry 95 Oxygen Delivery 04/23/24 23:49 04/24/24 00:00 04/24/24 02:00 Temperature Pulse Rate 84 78 Respiratory Rate Blood Pressure Pulse Oximetry Oxygen Delivery Room Air 04/24/24 04:08 04/24/24 04:00 04/24/24 04:00 Temperature 97.3 F L Pulse Rate 82 85 Respiratory Rate 20 Blood Pressure 133/72 Pulse Oximetry 98 Oxygen Delivery Room Air 04/24/24 08:00 04/24/24 08:00 04/24/24 08:00 Temperature 97.5 F L Pulse Rate 73 86 Respiratory Rate 18 Blood Pressure 142/73 H Pulse Oximetry 94 Oxygen Delivery Room Air 04/24/24 08:15 04/24/24 12:00 Temperature 97.4 F L Pulse Rate 81 Respiratory Rate 18 Blood Pressure 125/69 141/84 H Pulse Oximetry 95 Oxygen Delivery Exam Const: General: no acute distress Orientation/consciousness: oriented to person, oriented to place and oriented to time HENMT: Head: normocephalic and atraumatic Ears: hearing grossly normal bilaterally and external ears normal Face/Nose/Sinus: Normal external nose present Mouth: Yes Normal oral and palatal mucosa present Eyes: General: appearance normal, both eyes and all related structures Eyelids: eyelids normal Conjunctivae: conjunctivae normal Pupils: Equal, round and reactive pupils present EOM: No Nystagmus present Neck: Neck: normal visual inspection Resp: Effort & Inspection: normal respiratory effort Cardio: Rhythm: regular rhythm Skin: General skin exam: normal color and no rashes or lesions noted Neuro: General: oriented to person, oriented to place and oriented to time Cranial nerves: Yes CN's II-XII intact bilaterally ( However mild flattening of the left nasolabial fold noted), Yes Equal, round and reactive pupils present, Yes Bilaterally intact EOM present, Yes Nystagmus not present, Yes Normal facial strength present, Yes facial symmetry, Yes Midline tongue present, Yes Symmetric palate elevation present, Yes Normal hearing present, Yes Ability to bilaterally elevate shoulders present and No Nystagmus present Speech: normal speech Gait exam (Neuro): Normal gait present Motor exam (neuro): 5/5 motor strength present throughout, Normal motor muscle tone present throughout and Motor abnormalities not present Sensory Exam: normal sensation Deep tendon reflexes (DTR's): Right triceps reflex intensity grade: 1+, Left triceps reflex intensity grade: 1+, Rt Biceps (C5, C6): 1+, Left biceps reflex intensity grade: 1+, Right brachioradialis reflex intensity grade: 1+, Left brachioradialis reflex intensity grade: 1+, Right patellar reflex intensity grade: 1+, Left patellar reflex intensity grade: 1+, Right ankle reflex intensity grade: 1+ and Left ankle reflex intensity grade: 1+ Coordination: [id number] test normal, tandem gait normal and Romberg test negative Extrem: General: normal to inspection Psych: Appearance: grossly normal Mental Status: mental status grossly normal Affect: normal affect Attitude: cooperative Results Labs 04/23/24 04:42 04/23/24 04:42
--- NOTE | 2024-04-24 14:32 | ECG_ITS ---
Test Date: 2024-04-24 15:06:48 Measurements Intervals Mcgill Rate: 81 P: 42 MA: 162 QRS: -78 QRSD: 166 T: 30 QT: 414 QTc: 482 Interpretive Statements SINUS RHYTHM WITH FREQUENT SUPRAVENTRICULAR PREMATURE COMPLEXES RIGHT BUNDLE BRANCH BLOCK [120+ ms QRS DURATION, UPRIGHT V1, 40+ ms S IN I/aVL/V4/V5/V6] LEFT ANTERIOR FASCICULAR BLOCK [QRS AXIS <= -45, QR IN I, RS IN II] Compared to ECG 04/22/2024 12:19:35 No significant changes Electronically Signed On 04-24-2024 15:20:18 LEAD PROGRAMMER by Saravanan Nelson M.D.
[2024-04-24 16:18] LABS: Glucose Point of Care 148 mg/dl (65-105)
[2024-04-24] MEDS: ASPIRIN 81 MG ENTERIC TABLET PO (17:07)
--- NOTE | 2024-04-24 17:33 | P.DS_ITS ---
DS: Admitting Diagnosis Discharge Date 04/24/24 Admitting Diagnosis Brain TIA DS: Discharge Diagnosis Discharge Diagnosis (1) Acute ischemic right MCA stroke: Code(s): I63.511 - Cerebral infarction due to unspecified occlusion or stenosis of right middle cerebral artery Status: Acute DS: Summary Hospital Course Reason for hospitalization: 04/22 Copied from HPI: 73 y/o M presents here with left-sided weakness and dysarthria with PMH of CVA w/no residual deficits, CKD stage 3, DM, HTN, HLD, and SELIN on CPAP. The patient presents here from home via EMS for further evaluation of left-sided weakness and dysarthria. Patient had left home for a celebratory breakfast at around 7:45 a.m. and he felt like his normal self. Patient did not speak this morning to his before he left. Reported no changes in his gait when he went out to his car. Could not find the building and ended up turning around and coming home. When he exited his car when he returned home around 10:45 a.m., he noted some changes in his gait. At this time the patient's noticed that the patient had left-sided weakness and dysarthria which she described as his mouth possible marbles . Symptoms lasted for approximately 3-4 hours, had resolved by the time he presented to the ER. Last known well was yesterday, 04/21, at 5:30 p.m. Unclear onset of dysarthria, more clear onset of weakness. He has a history of CVA with no residual deficits in 2020. Stroke evaluation in the ED showed 1 point for extinction deficit. CTA was performed of the head/neck which showed no acute infarcts but did show a focal moderate stenosis of the left P2 posterior cerebral artery. ED provider spoke with on-call neurologist who recommended admission for TIA workup. The patient is currently denying focal deficits including weakness, numbness, dyasrthria, vision changes, dizziness, or headache. Has not ambulated since arrival. Initial VS at presentation: 97.5? F, HR 93, R 16, 134/60, and 97% on RA. ED workup showed: No leukocytosis, no anemia, normal coags, no significant electrolyte derangements, creatinine 1.6 and GFR 42 (previously 1.47 and GFR 50 in 2022), initial troponin negative. Head CT showed old infarcts in the right cerebellum, left occipital lobe, and right basal ganglia as well as stable moderate nonspecific cerebral white matter disease. CTA of the head/neck showed old infarcts involving the right cerebellum, left occipital lobe, and right basal ganglia, moderate nonspecific cerebral white matter disease, focal moderate stenosis of the left P2 posterior cerebral artery, and 0% stenosis of the proximal internal carotid arteries. CXR showed no acute cardiopulmonary disease. Hospital Course: This is a 73 year presented to hospital 04/22/2024 with dysarthria and left- sided weakness. Workup in the hospital included a head CT which showed old infarcts in the right cerebellum, left occipital lobe, and right basal ganglia, stable moderate nonspecific cerebral white matter disease consistent with visitor services representative oscar vessel ischemic disease. Head and neck CTA showed old infarcts involving the right cerebellum, left occipital lobe, and right basal ganglia, moderate nonspecific cerebral white matter disease representing chronic small-vessel ischemic disease, 0% stenosis in bilateral proximal internal carotid arteries , focal moderate stenosis of left P2 posterior cerebral artery. Chest x-ray was negative. Brain MRI showed acute infarct in the right frontoparietal region, old infarcts in the right cerebellum, left occipital lobe, right basal ganglia and right frontoparietal region, moderate nonspecific cerebral white matter disease likely representing chronic small-vessel ischemic disease. Initial labs showed a normal white blood count of 8.1, creatinine 1.60> 1.30, EGFR 54, blood sugars ranging 127-165, hemoglobin A1c 7.1, troponin was negative. EKG showed normal sinus rhythm with right bundle branch block, left anterior fascicular block with a rate of 91, QTC 461. Patient initially on apixaban, changed to aspirin and Plavix per neurology. He is currently on atorvastatin 40 mg daily, increased dose. PT/OT/Speech followed during admission. Passed a bedside swallow. Cerebral infarction, unspecified dysarthria and gait disturbance, hx of strokes. 04/[address] old infarcts in the right cerebellum, left occipital lobe, and right basal ganglia, stable moderate nonspecific cerebral white matter disease likely representing chronic small-vessel ischemic disease. 04/22 Head/neck CTA showed old infarcts involving the right cerebellum, left occipital lobe, right basal ganglia, moderate nonspecific cerebral white matter disease likely representing chronic small-vessel ischemic disease, focal moderate stenosis of left P2 posterior cerebral artery, 0% stenosis in bilateral internal carotid arteries. 04/23 Brain MRI 1. Acute infarct in the right frontoparietal region. 2. Old infarcts in the right cerebellum, left occipital lobe, right basal ganglia, and right frontoparietal region. 3. Moderate nonspecific cerebral white matter disease, which likely represents chronic small vessel ischemic disease. Tele Sinus arrhythmia, regular rate S/p ASA & Plavix in the ED Changed home Eliquis 2.5mg BID to 5mg BID for improved renal function, but discontinued since no evidence of afib Continued Aspirin and Plavix Continue Atorvastatin 40mg--increased to 80mg, stopped rosuvastatin. , Follow up per PCP Neurology, Cardiology per PCP Diabetes mellitus: Blood sugars controlled, ranging 115-172 Home meds: Lantus 30 daily, Janumet 50-1000mg BID, Jardiance 25mg 04/10/24 A1c 7.2 During admission, continued Jardiance, reduced Lantus dose. Hyperlipidemia Increased statin dose Treatment of blood sugars as noted Hypertension blood pressures controlled, 133/72-142/73 * continued enalapril 10mg daily SELIN on CPAP: continue CPAP at night Status at Discharge Cognitive/behavioral status at discharge: A&Ox4 Time Spent with Patient Time attestation: Total time spent providing and/or coordinating discharge services: Exam Narrative: General: In no acute distress, well nourished Head: atraumatic, no encephalopathy Eyes: EOMI, PERRLA, sclera clear, denies any vision changes ENT: moist mucous membranes, nasal passages clear Neck: supple, no JVD, no adenopathy, trachea midline Cardiac: Normal S1 and S2., No murmur, gallops or friction rubs, peripheral pulses intact. Respiratory: Lungs clear to auscultation, no adventitious lung sounds, currently on room air Gastrointestinal: soft, non-distended, non-tender, normoactive bowel sounds. : voiding without difficulty. Extremities: moves all extremities well, left lower extremity weakness 4/5 versus 5/5 on the right lower extremity Skin: clean, dry, intact. No wounds or lesions. Neuro: Alert and oriented x4, cranial nerves intact, no facial droop, facial features are symmetrical. Dysarthria, unsteady gait Psych: normal mood, normal affect, interactive DS: Data Data Completed and Pending Labs on day of discharge: Labs from last 24 hours 04/24/24 04/24/24 04/24/24 16:00 11:53 07:40 POC Capillary Glucose 148 H 136 H 124 H 04/23/24 20:15 POC Capillary Glucose 156 H Discharge Plan Discharge Attending physician on discharge: Yumiko Mcguire Consulting providers: Vanita Mccann; Chelita Ordonez; Purnima Estevez; Saravanan Nelson; Manuel Linton V. Discharging Clinician: Yumiko Mcguire Anticipated Discharge Date/Time: 04/24/24 15:41 Patient Disposition: Home, Self-Care Activity: no shower Diet: heart healthy and diabetic Discharge Instructions: Continue to take Plavix and Aspirin 81mg daily. Stop Eliquis. You should follow up with your PCP in 1-2 weeks. The MRI of your brain showed a stroke in right frontoparietal region. You also had old strokes in other areas. Discuss with your PCP if you should follow up with cardiology or neurology. Ok for follow up with neurology if new symptoms. Dr. Mccann is [phone] Patient Instructions: Antibiotic Form Patient Language: Bengali Stand Alone Forms: General Discharge Information Follow-up/Referrals: Mark Nation MD [Primary Care Provider] - (Follow up in 1-2 weeks) Discharge Medications: New clopidogrel 75 mg Tablet 75 mg PO QAM 90 Days Qty: 90 0RF aspirin 81 mg Tablet,Delayed Release (Dr/Ec) 81 mg PO QAM Qty: 90 3RF atorvastatin 80 mg tablet 80 mg PO HS Qty: 90 3RF Continued insulin lispro [Humalog KwikPen Insulin] 100 unit/mL insulin pen See Rx Instructions subcut .QAC & QHS MDD 80 Qty: 15 3RF Rx Instructions: Use with SSI QAC and QHS subcut .QAC & QHS; diphenhydramine HCl [Benadryl Allergy] 25 mg tablet 25 mg PO Q12H (DME) FreeStyle Osiel 2 Sensor Kit See Rx Instructions .Route Qty: 6 3RF Rx Instructions: As directed enalapril maleate 10 mg tablet 10 mg PO DAILY Qty: 90 3RF insulin glargine [Lantus Solostar U-100 Insulin] 100 unit/mL (3 mL) insulin pen 30 unit subcut QHS Jardiance 25 mg tablet 25 mg PO DAILY (DME) pen needle, diabetic [BD Ultra-Fine Mini Pen Needle] 31 gauge x 3/16 needle See Rx Instructions .Route Qty: 300 3RF Rx Instructions: As directed with insulin 5 times a day gabapentin 300 mg capsule 600 mg PO TID Qty: 540 3RF Discontinued Eliquis 2.5 mg tablet 2.5 mg PO DAILY rosuvastatin 20 mg tablet 20 mg PO DAILY Qty: 90 3RF No Action Janumet 50-1,000 mg tablet 1 tablet PO BID Qty: 180 3RF Other Ambulatory Orders: OT Outpatient Eval and Treat (ONCE) Timeframe: 20240501 Location: Determined by Patient Ordered By: Yumiko Mcguire PT Outpatient Eval and Treat (ONCE) Timeframe: 20240501 Location: Determined by Patient Ordered By: Yumiko Mcguire ST / Speech Therapy Outpatient Eval and Treat (ONCE) Timeframe: 20240501 Location: Determined by Patient Ordered By: Yumiko Mcguire Date of admission: 04/23/24 16:06 Primary Care Provider: Mark Nation Admitting Provider: Elliot Cassidy Attending physician on admission: Yumiko Mcguire Condition: Stable Hospitalist MIPS Heart Failure (Exclusion) Patient has history of Heart Transplant or Left Ventricular Assistive Device?: No IF YES, STOP HERE Heart Failure (Qualifier) Patient has current or prior documentation of LVEF less than or equal to 40%, or mod/servere depressed LVSF?: No IF NO, STOP HERE
[2024-05-01 12:01] LABS: Glucose Point of Care 208 mg/dl (65-105)
== END 2024-04-24 17:27 | disposition home or self-care (01) | DRG 66 ==
LOC: ANHED 12:09 → ANHIMU 15:48
PROVIDERS: Nurse Practitioner Acute Care; Student in an Organized Health Care Education/Training Program; Admitting Provider General Practice; Emergency Provider Student in an Organized Health Care Education/Training Program; PCP Family Medicine; Visit Provider Nurse Practitioner Acute Care
DX: I63.511 Cerebral infarction due to unspecified occlusion or stenosis of right middle cerebral artery (principal); I12.9 Hypertensive chronic kidney disease with stage 1 through stage 4 chronic kidney disease, or unspecified chronic kidney disease; N18.30 Chronic kidney disease, stage 3 unspecified; E11.22 Type 2 diabetes mellitus with diabetic chronic kidney disease; E11.42 Type 2 diabetes mellitus with diabetic polyneuropathy; E78.2 Mixed hyperlipidemia; R29.701 NIHSS score 1; R26.9 Unspecified abnormalities of gait and mobility; R13.10 Dysphagia, unspecified; M17.0 Bilateral primary osteoarthritis of knee; G47.33 Obstructive sleep apnea (adult) (pediatric); Z79.01 Long term (current) use of anticoagulants; Z79.4 Long term (current) use of insulin; Z87.891 Personal history of nicotine dependence; Z86.73 Personal history of transient ischemic attack (TIA), and cerebral infarction without residual deficits
CPT/HCPCS: 36415; 70450; 70496; 70498; 70553; 71045; 80048; 80053; 80061; 81003; 82948; 83036; 84484; 85025; 85610; 85730; 92610; 93005; 97161; 97165; 99285; A9270; A9577; G0378; J1815; Q9967

== ENCOUNTER 2024-07-28 12:30 | Outpatient (RCR) | payer MEDICARE, OTHER, SELFPAY ==
--- NOTE | 2024-05-01 12:10 | STOPEVAL1 ---
Assessment and note entered by Anna Dixon SPONGE BUFFER Evaluation Information Assessment Status Evaluation Assessment Status Evaluation Reported Pain Level Pain Score 0: Self Report Pain Score 0: Self Report Assessment ST Clinical Summary COMMUNICATION EVALUATION The patient reports he had a CVA on , or April 22, 2024. He reports that he drove home from [facility] independently and when he arrived home, his insisted he go to the hospital. He was admitted to [facility] where he had one ST evaluation for swallowing. Patient also reported a history of two TIA's in the past that did not significantly affect his speech or swallowing. Today, the patient reports that today, he has to think about how to swallow. He stated that it takes forever to swallow pills. Patient reported no complaints with swallowing solid foods, it goes right down. He does report some hesitation with swallowing water. With his speech, he reports that he has to think about what he wants to say, and when he starts to talk, it is a little muffled and my mouth doesn't want to work right. He also reported he feels his vocal loudness is decreased from normal and that his voice is also hoarse now. When asked to summarize his concerns with speech and swallowing, patient stated, It's just messed up. Today the patient's speech, voice and swallowing were assessed. He presents with speech that is slurred with imprecise consonant productions, voiced sounds are more imprecise than voiceless sounds that require more physical effort. Vocal loudness was judged to be mildly reduced and voice was judged to be mildly hoarse. Patient's repetition of words, phrases, and sentences were judged to be intelligible however individual labial and lingual speech sounds were judged to be mildly to severely imprecise contributing to overall slurred or dysarthric speech. Patient exhibited no difficulty swallowing water, applesauce, or waqar crackers during this session. Receptive/Expressive language was also assessed. He exhibited good comprehension of verbal material until he was presented with moderate to lengthy paragraph stories, indicating more of an immediate memory issue for lengthy and complex information. His ability to retrieve words and use them appropriately was judged to be within normal limits for the testing situation. Speech Therapy is recommended twice weekly for 10 visits to address oral motor strength, speech sound precision, vocal loudness and quality, swallowing of pills, and higher-level memory skills. Today the patient was instructed in the use of safe swallowing for medications, including head flexion, use a thicker liquid or liquid with flavor to assist with swallowing pills, take pills in soft foods such as applesauce or pudding, consider a different form of the medication, cut or crush medicines, depending on pharmacist instructions. Patient and voiced good understanding. They were provided a written list of suggestions. Thank you for this referral. Plan of Care Interventions Treatment of Speech,Treatment of Language, Treatment of Swallowing Dysfunction ST Services Indicated Yes Treatment Frequency and 2xwk/10 visits Duration These treatments will address the objective and functional deficits as defined above. The patient will be advanced safely and appropriately in order for the patient to progress towards his/her prior level of function. Additional exercises will be introduced and as well as a comprehensive home exercise program upon discharge, if needed, ?to ensure carryover of functional gains achieved in the clinic. This treatment plan has been reviewed and agreement upon by the patient.
--- NOTE | 2024-05-01 15:30 | OTOPEVAL1 ---
Assessment and note entered by Tita Raymundo OT Evaluation Information Assessment Status Evaluation Assessment Status Evaluation Subjective Information Pt. presents with spouse. Spouse reports that prior to recent admission pt. was independent in ADLs and functional mobility with single peg cane when out of the house, using manual wheelchair for longer distances, furniture and wall walking in the home. Since return home pt. has been using front wheeled walker in home, spouse assisting with functional transfers, including toileting for bowel movement, pt. SBA for shower transfers, pt. has required additional assist for ADLs including perineal hygiene and lower body dressing. Reported Pain Level Pain Score 0: Self Report Pain Score 0: Self Report Assessment OT Clinical Summary Pt. recently hospitalized at [facility] for acute infarct in right frontoparietal lobe . Pt. has history of CVA. Pt. discharged home. Since return home, pt. has required increased assist, MIN assist in functional transfers and ADLs due to decreased balance, strength, and motor control. Pt. presents with decreased ROM in L UE at shoulder and decreased strength at all joints. Pt. displays slowed and incongruent L hand coordination and fine motor control, limiting dexterity and functional use of L UE. Pt. will benefit from skilled OT services including neuro reeducation, therapeutic exercises, ADL retraining , functional transfer training, and caregiver/ family education and training to facilitate increased functional capacity and return to independence. Plan of Care Interventions Therapeutic Exercise,Neuro Re-education, Therapeutic Activities,Self-Care/Home Management OT Services Indicated Yes These treatments will address the objective and functional deficits as defined above. The patient will be advanced safely and appropriately in order for the patient to progress towards his/her prior level of function. Additional exercises will be introduced and as well as a comprehensive home exercise program upon discharge, if needed, ?to ensure carryover of functional gains achieved in the clinic. This treatment plan has been reviewed and agreement upon by the patient.
--- NOTE | 2024-05-01 15:33 | OPREHPOC ---
Outpatient Therapy Plan of Care This is a Multidisciplinary Plan of Care that may contain components documented by all disciplines (PT, OT, and ST.) OT Problem 1 OT Problem #1 Knowledge Deficit OT Goal 1 Goal / Goal Update Pt. will independently complete HEP Pt. will demonstrate knowledge of compensatory strategies and knowledge of appropriate use of AE for increased independence in ADLs Target Visit 10 OT Problem 2 OT Problem #2 Impaired Coordination OT Goal 1 Goal / Goal Update Pt. will demonstrate increased L handed coordination, as evidenced by increasing speed of 9 hole peg test by 30 seconds Target Visit 10 OT Problem 3 OT Problem #3 Impaired Range of Motion OT Goal 1 Goal / Goal Update Pt. will demonstrate increased functional reach and ROM at shoulder as evidenced by reach to feet with L UE, allowing for pt. to doff/don bilateral shoes and complete additional ADLs independently OT Problem 4 OT Problem #4 Impaired Balance OT Goal 1 Goal / Goal Update Pt. will improve functional transfers with least restrictive device to SBA ST Problem 1 ST Problem #[address] Goal 1 Goal / Goal Update 1.Patient will voice and demonstrate understanding of anatomy and physiology related to swallowing impairment, voicing, communication impairment, cognitive impairment, treatment plan, home exercise program, compensatory programs, and risks and benefits related to direct Speech Therapy tasks. Target Visit [address] Problem #[address] Goal 1 Goal / Goal Update 1. Patient will improve labial function to prevent food/liquid spillage from the oral cavity and improve speech sound precision by completing labial exercises 10 reps with good rate, range, and strength. Patient will improve lingual function for effective bolus formation and improve speech sound precision by completing lingual exercises 10 reps with good rate, range, and strength. 3. Patient will participate in tasks to increase the strength of the vocal cords while maintaining appropriate use of vocal cords/avoiding over-use or abusive voice behaviors 90% of the time. 4. Patient will demonstrate increased coordination and diadochokinetic rates for both labial and lingual sounds so that patient can upset operator his own productions as precise? 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 5. Patient will produce over-articulated mono-/bi- /poly-syllabic words with 90% accuracy. 6. Patient will produce over-articulated words at the phrase/sentence level with 90% accuracy. 7. Patient will develop intelligible, connected speech through the use of compensatory techniques as needed. 8. Patient will produce over-articulated mono-/bi- /poly-syllabic words with 80% accuracy with emphasis on labial/labial-dentals /p,b,m,f,v/ secondary to reduced labial movement. 9. Patient will complete tasks to improve overall speech sound precision in order to improve conversational intelligibility 90% of the time. Target Visit [address] Problem #[address] Goal 1 Goal / Goal Update 1. Patient will complete base of tongue retraction exercises along with hard, effortful swallows and swallows with chin tuck against to improve the strength of the swallow for improved airway protection 10+ repetitions. 2. Patient will complete chin tuck against resistance in order to increase the strength of the swallow for improved airway protection 10+ repetitions. 3. Patient will voice improved swallowing for pills by time of discharge. Target Visit 10
--- NOTE | 2024-05-05 10:04 | OPREHPOC ---
Outpatient Therapy Plan of Care This is a Multidisciplinary Plan of Care that may contain components documented by all disciplines (PT, OT, and ST.) PT Problem 1 PT Problem #1 Knowledge Deficit PT Goal 1 Goal / Goal Update *indep with HEP Target Visit 10 PT Goal 2 Goal / Goal Update *use of correct technique for sit/ stand transfer, without cues Target Visit 19 PT Problem 2 PT Problem #2 Impaired Strength PT Goal 1 Goal / Goal Update *increase LE strength to improve mobility pt perform 20 reps of supine exercises R and L LE Target Visit 10 PT Goal 2 Goal / Goal Update * sit/stand transfer from w/c with use of 1 UE and on first trial Target Visit 10 PT Problem 3 PT Problem #3 Impaired Functional Mobility PT Goal 1 Goal / Goal Update *TUG with wheeled walker, 35 seconds, to improve mobility Target Visit 10 PT Goal 2 Goal / Goal Update *Tinetti balance/gait score of 21/28 to decrease fall risk Target Visit 10 PT Problem 4 PT Problem #4 Impaired Gait PT Goal 1 Goal / Goal Update pt ambulate with wheeled walker, distance of 175 ' with 2 minute walking test Target Visit 10 OT Problem 1 OT Problem #1 Knowledge Deficit OT Goal 1 Goal / Goal Update Pt. will independently complete HEP Pt. will demonstrate knowledge of compensatory strategies and knowledge of appropriate use of AE for increased independence in ADLs Target Visit 10 OT Problem 2 OT Problem #2 Impaired Coordination OT Goal 1 Goal / Goal Update Pt. will demonstrate increased L handed coordination, as evidenced by increasing speed of 9 hole peg test by 30 seconds Target Visit 10 OT Problem 3 OT Problem #3 Impaired Range of Motion OT Goal 1 Goal / Goal Update Pt. will demonstrate increased functional reach and ROM at shoulder as evidenced by reach to feet with L UE, allowing for pt. to doff/don bilateral shoes and complete additional ADLs independently OT Problem 4 OT Problem #4 Impaired Balance OT Goal 1 Goal / Goal Update Pt. will improve functional transfers with least restrictive device to SBA ST Problem 1 ST Problem #[address] Goal 1 Goal / Goal Update 1.Patient will voice and demonstrate understanding of anatomy and physiology related to swallowing impairment, voicing, communication impairment, cognitive impairment, treatment plan, home exercise program, compensatory programs, and risks and benefits related to direct Speech Therapy tasks. Target Visit [address] Problem #[address] Goal 1 Goal / Goal Update 1. Patient will improve labial function to prevent food/liquid spillage from the oral cavity and improve speech sound precision by completing labial exercises 10 reps with good rate, range, and strength. Patient will improve lingual function for effective bolus formation and improve speech sound precision by completing lingual exercises 10 reps with good rate, range, and strength. 3. Patient will participate in tasks to increase the strength of the vocal cords while maintaining appropriate use of vocal cords/avoiding over-use or abusive voice behaviors 90% of the time. 4. 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 5. Patient will produce over-articulated mono-/bi- /poly-syllabic words with 90% accuracy. 6. Patient will produce over-articulated words at the phrase/sentence level with 90% accuracy. 7. Patient will develop intelligible, connected speech through the use of compensatory techniques as needed. 8. Patient will produce over-articulated mono-/bi- /poly-syllabic words with 80% accuracy with emphasis on labial/labial-dentals /p,b,m,f,v/ secondary to reduced labial movement. 9. Patient will complete tasks to improve overall speech sound precision in order to improve conversational intelligibility 90% of the time. Target Visit [address] Problem #[address] Goal 1 Goal / Goal Update 1. Patient will complete base of tongue retraction exercises along with hard, effortful swallows and swallows with chin tuck against to improve the strength of the swallow for improved airway protection 10+ repetitions. 2. Patient will complete chin tuck against resistance in order to increase the strength of the swallow for improved airway protection 10+ repetitions. 3. Patient will voice improved swallowing for pills by time of discharge. Target Visit 10
--- NOTE | 2024-05-05 10:04 | PTOPEVAL1 ---
Assessment and note entered by Emani Monet, PT Evaluation Information Assessment Status Evaluation ICD-10 Condition Codes (PT) Difficulty Walking R26.2,Abnormalities of gait and mobility R26.9,Weakness R53.1 Other ICD-10 Condition Codes ( CVA I63.511 PT) Onset 04-22-24 Subjective Information went from hospital to home with ; did not have HHC therapy; walking in home with wheeled walker, going out only for dr neil; problems getting in and out of car-have car cane for support, verbally instructs him but does not physically assist him; had one fall on stairs since home from hospital-- got chair lift; have a fear of falling; Prior to CVA: used cane when going out of home, due to knee pain and decreased balance; did most home tasks; indep with self care; not very active; have chair lift at home for stairs; Goal: get back to normal with walking; Reported Pain Level Pain Score 0: Self Report Assessment PT Clinical Summary Tyler has the diagnosis of s/p CVA. He did not have any HHC or in pt rehab, returned home from the hospital, with his to assist him. He reports problems with walking and balance, had one fall on the stairs. is doing all home tasks. With the evaluation: to dept in w/c pushed by ; TUG with wheeled walker 70 seconds; 2 minute walking test distance with wheeled walker of 125', with maximum walking distance of 160'; Tinetti balance score of 9/28= high fall risk, sit /stand transfer requires use of both UE and multiple trials to perform. Skilled PT services are indicated for therapeutic exercises and activities to increase R and L LE strength, gait, transfer and balance skills, with education for HEP and safety with mobility. Plan of Care Interventions Gait Training,Patient/Caregiver Education, Therapeutic Activities,Therapeutic Exercise PT Services Indicated Yes Treatment Frequency and 2x/wk for 10 visits Duration These treatments will address the objective and functional deficits as defined above. The patient will be advanced safely and appropriately in order for the patient to progress towards his/her prior level of function. Additional exercises will be introduced and as well as a comprehensive home exercise program upon discharge, if needed, ?to ensure carryover of functional gains achieved in the clinic. This treatment plan has been reviewed and agreement upon by the patient.
--- NOTE | 2024-06-15 12:05 | OTOPPROG ---
Assessment and note entered by FRANDY Pandya/Mani, CHT OT Progress Update 06/15/24 Diagnosis CVA Subjective Information Patient reports functional progress since the start of care. He reports he is now dressing and bathing himself independently (modified independent with DME). He has returned to being able to complete toileting tasks and toilet transfers independently. He reports his left arm and hand feel stronger. Assessment OT Clinical Summary Patient has attended 10 OT sessions focused on improved left UE strength and coordination as well as improved functional independence with ADLs. Patient has made great progress with OT. Left shoulder ROM and strength has improved to normal limits, compared to 100 degrees of flexion and 90 degrees of abduction at the initial evaluation. 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 and is measuring 59 lbs. Fine motor coordination, as measured by the 9-hole peg test improved by 18 seconds and he was able to complete the test in 85 seconds, which is moderately below normal limits. Continued skilled OT indicated to continue to progress functional strength and fine motor coordination for improved left hand/UE use for ADLs. Plan of Care Interventions Therapeutic Exercise,Neuro Re-education, Therapeutic Activities,Self-Care/Home Management OT Services Indicated Yes Treatment Frequency and 1x/week for 4 visits Duration These treatments will address the objective and functional deficits as defined above. The patient will be advanced safely and appropriately in order for the patient to progress towards his/her prior level of function. Additional exercises will be introduced and as well as a comprehensive home exercise program upon discharge, if needed, ?to ensure carryover of functional gains achieved in the clinic. This treatment plan has been reviewed and agreement upon by the patient.
--- NOTE | 2024-06-15 12:06 | OPREHPOC ---
Outpatient Therapy Plan of Care This is a Multidisciplinary Plan of Care that may contain components documented by all disciplines (PT, OT, and ST.) PT Problem 1 PT Problem #1 Knowledge Deficit PT Goal 1 Goal / Goal Update *indep with HEP Target Visit 10 PT Goal 2 Goal / Goal Update *use of correct technique for sit/ stand transfer, without cues Target Visit 19 PT Problem 2 PT Problem #2 Impaired Strength PT Goal 1 Goal / Goal Update *increase LE strength to improve mobility pt perform 20 reps of supine exercises R and L LE Target Visit 10 PT Goal 2 Goal / Goal Update * sit/stand transfer from w/c with use of 1 UE and on first trial Target Visit 10 PT Problem 3 PT Problem #3 Impaired Functional Mobility PT Goal 1 Goal / Goal Update *TUG with wheeled walker, 35 seconds, to improve mobility Target Visit 10 PT Goal 2 Goal / Goal Update *Tinetti balance/gait score of 21/28 to decrease fall risk Target Visit 10 PT Problem 4 PT Problem #4 Impaired Gait PT Goal 1 Goal / Goal Update pt ambulate with wheeled walker, distance of 175 ' with 2 minute walking test Target Visit 10 OT Problem 1 OT Problem #1 Knowledge Deficit OT Goal 1 Goal / Goal Update Pt. will independently complete HEP Pt. will demonstrate knowledge of compensatory strategies and knowledge of appropriate use of AE for increased independence in ADLs ---OT POC UPDATE 06/15/24--- The above goals have been met, continue HEP goal as his HEP is progressed Target Visit 15 Progress Met OT Problem 2 OT Problem #2 Impaired Coordination OT Goal 1 Goal / Goal Update Pt. will demonstrate increased L handed coordination, as evidenced by increasing speed of 9 hole peg test by 30 seconds ---OT POC UPDATE 06/15/24--- Progressing, not met, continue to 73 seconds or less with the 9-hole peg test Target Visit 15 Progress Partially Met OT Problem 3 OT Problem #3 Impaired Range of Motion OT Goal 1 Goal / Goal Update Pt. will demonstrate increased functional reach and ROM at shoulder as evidenced by reach to feet with L UE, allowing for pt. to doff/don bilateral shoes and complete additional ADLs independently ---OT POC UPDATE 06/15/24--- Met, shoulder ROM and strength improved to normal limits and he has progressed to independent with ADLs Progress Met OT Problem 4 OT Problem #4 Impaired Balance OT Goal 1 Goal / Goal Update Pt. will improve functional transfers with least restrictive device to SBA ---OT POC UPDATE 06/15/24--- Met Progress Met ST Problem 1 ST Problem #[address] Goal 1 Goal / Goal Update 1.Patient will voice and demonstrate understanding of anatomy and physiology related to swallowing impairment, voicing, communication impairment, cognitive impairment, treatment plan, home exercise program, compensatory programs, and risks and benefits related to direct Speech Therapy tasks. Target Visit [address] Problem #[address] Goal 1 Goal / Goal Update 1. Patient will improve labial function to prevent food/liquid spillage from the oral cavity and improve speech sound precision by completing labial exercises 10 reps with good rate, range, and strength. Patient will improve lingual function for effective bolus formation and improve speech sound precision by completing lingual exercises 10 reps with good rate, range, and strength. 3. Patient will participate in tasks to increase the strength of the vocal cords while maintaining appropriate use of vocal cords/avoiding over-use or abusive voice behaviors 90% of the time. 4. 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 5. Patient will produce over-articulated mono-/bi- /poly-syllabic words with 90% accuracy. 6. Patient will produce over-articulated words at the phrase/sentence level with 90% accuracy. 7. Patient will develop intelligible, connected speech through the use of compensatory techniques as needed. 8. Patient will produce over-articulated mono-/bi- /poly-syllabic words with 80% accuracy with emphasis on labial/labial-dentals /p,b,m,f,v/ secondary to reduced labial movement. 9. Patient will complete tasks to improve overall speech sound precision in order to improve conversational intelligibility 90% of the time. Target Visit [address] Problem #[address] Goal 1 Goal / Goal Update 1. Patient will complete base of tongue retraction exercises along with hard, effortful swallows and swallows with chin tuck against to improve the strength of the swallow for improved airway protection 10+ repetitions. 2. Patient will complete chin tuck against resistance in order to increase the strength of the swallow for improved airway protection 10+ repetitions. 3. Patient will voice improved swallowing for pills by time of discharge. Target Visit 10
--- NOTE | 2024-06-20 11:55 | OPREHPOC ---
Outpatient Therapy Plan of Care This is a Multidisciplinary Plan of Care that may contain components documented by all disciplines (PT, OT, and ST.) PT Problem 1 PT Problem #1 Knowledge Deficit PT Goal 1 Goal / Goal Update *indep with HEP 06-20-24 progress goal met continue towards goal to progress HEP Target Visit 18 PT Goal 2 Goal / Goal Update *use of correct technique for sit/ stand transfer, without cues 06-20-24 progress goal met Target Visit 10 Progress Met PT Problem 2 PT Problem #2 Impaired Strength PT Goal 1 Goal / Goal Update *increase LE strength to improve mobility pt perform 20 reps of supine exercises R and L LE 06-20-24 progress goal met Target Visit 10 Progress Met PT Goal 2 Goal / Goal Update * sit/stand transfer from w/c with use of 1 UE and on first trial 06-20-24 progress goal not met, continue towards Target Visit 18 PT Problem 3 PT Problem #3 Impaired Functional Mobility PT Goal 1 Goal / Goal Update *TUG with wheeled walker, 35 seconds, to improve mobility 06-20-24 progress goal not met, improved to 62 seconds NEW GOAL: 1* TUG with wheeled walker 42 seconds 2* with turning to sit down, pt not stop with turning/ continue to step around Target Visit 18 PT Goal 2 Goal / Goal Update *Tinetti balance/gait score of 21/28 to decrease fall risk 06-20-24 progress goal not met continue towards Target Visit 18 PT Problem 4 PT Problem #4 Impaired Gait PT Goal 1 Goal / Goal Update pt ambulate with wheeled walker, distance of 175 ' with 2 minute walking test 06-20-24 progress goal not met, continue towards Target Visit 18 OT Problem 1 OT Problem #1 Knowledge Deficit OT Goal 1 Goal / Goal Update Pt. will independently complete HEP Pt. will demonstrate knowledge of compensatory strategies and knowledge of appropriate use of AE for increased independence in ADLs ---OT POC UPDATE 06/15/24--- The above goals have been met, continue HEP goal as his HEP is progressed Target Visit 15 Progress Met OT Problem 2 OT Problem #2 Impaired Coordination OT Goal 1 Goal / Goal Update Pt. will demonstrate increased L handed coordination, as evidenced by increasing speed of 9 hole peg test by 30 seconds ---OT POC UPDATE 06/15/24--- Progressing, not met, continue to 73 seconds or less with the 9-hole peg test Target Visit 15 Progress Partially Met OT Problem 3 OT Problem #3 Impaired Range of Motion OT Goal 1 Goal / Goal Update Pt. will demonstrate increased functional reach and ROM at shoulder as evidenced by reach to feet with L UE, allowing for pt. to doff/don bilateral shoes and complete additional ADLs independently ---OT POC UPDATE 06/15/24--- Met, shoulder ROM and strength improved to normal limits and he has progressed to independent with ADLs Progress Met OT Problem 4 OT Problem #4 Impaired Balance OT Goal 1 Goal / Goal Update Pt. will improve functional transfers with least restrictive device to SBA ---OT POC UPDATE 06/15/24--- Met Progress Met ST Problem 1 ST Problem #[address] Goal 1 Goal / Goal Update 1.Patient will voice and demonstrate understanding of anatomy and physiology related to swallowing impairment, voicing, communication impairment, cognitive impairment, treatment plan, home exercise program, compensatory programs, and risks and benefits related to direct Speech Therapy tasks. Target Visit [address] Problem #[address] Goal 1 Goal / Goal Update 1. Patient will improve labial function to prevent food/liquid spillage from the oral cavity and improve speech sound precision by completing labial exercises 10 reps with good rate, range, and strength. Patient will improve lingual function for effective bolus formation and improve speech sound precision by completing lingual exercises 10 reps with good rate, range, and strength. 3. Patient will participate in tasks to increase the strength of the vocal cords while maintaining appropriate use of vocal cords/avoiding over-use or abusive voice behaviors 90% of the time. 4. 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 5. Patient will produce over-articulated mono-/bi- /poly-syllabic words with 90% accuracy. 6. Patient will produce over-articulated words at the phrase/sentence level with 90% accuracy. 7. Patient will develop intelligible, connected speech through the use of compensatory techniques as needed. 8. Patient will produce over-articulated mono-/bi- /poly-syllabic words with 80% accuracy with emphasis on labial/labial-dentals /p,b,m,f,v/ secondary to reduced labial movement. 9. Patient will complete tasks to improve overall speech sound precision in order to improve conversational intelligibility 90% of the time. Target Visit [address] Problem #[address] Goal 1 Goal / Goal Update 1. Patient will complete base of tongue retraction exercises along with hard, effortful swallows and swallows with chin tuck against to improve the strength of the swallow for improved airway protection 10+ repetitions. 2. Patient will complete chin tuck against resistance in order to increase the strength of the swallow for improved airway protection 10+ repetitions. 3. Patient will voice improved swallowing for pills by time of discharge. Target Visit 10
--- NOTE | 2024-06-20 11:55 | PTOPPROG ---
Assessment and note entered by Emani Monet, PT Assessment Status Progress ICD-10 Condition Codes (PT) Difficulty Walking R26.2,Abnormalities of gait and mobility R26.9,Weakness R53.1 Other ICD-10 Condition Codes ( CVA I63.511 PT) Onset 04-22-24 Subjective Information mobility is better since coming for therapy; using the wheelchair only for distances when going out--no longer use it at home or coming for therapy; doing the leg exercises at home; Assessment PT Clinical Summary Tyler has received 10 PT sessions. Compared to the initial evaluation: increase strength of R and L LE with mat exercises; decreased use of w/c for mobility, no longer using w/c to PT dept and facility; TUG with wheeled walker from 70 to 62 seconds; increase time with turning around to sit down; 2 minute walking test distance is the same at 125' with wheeled walker; gait pattern has improved, increased step length with L LE, but with fatigue, has L foot drag; Tinetti balance score from 9 to 11/28; education for HEP and gait pattern. is very supportive of pt and assisting him with HEP and mobility. The goals were partially met. Continue PT treatment to further improve gait and balance skills. Plan of Care Interventions Gait Training,Patient/Caregiver Education, Therapeutic Activities,Therapeutic Exercise PT Services Indicated Yes Treatment Frequency and 2x/wk for 8 visits Duration These treatments will address the objective and functional deficits as defined above. The patient will be advanced safely and appropriately in order for the patient to progress towards his/her prior level of function. Additional exercises will be introduced and as well as a comprehensive home exercise program upon discharge, if needed, ?to ensure carryover of functional gains achieved in the clinic. This treatment plan has been reviewed and agreement upon by the patient.
--- NOTE | 2024-07-20 10:53 | OTOPDC ---
Assessment and note entered by Luis Morton, OTR/L, CHT OT D/C Summary Diagnosis CVA Subjective Information Patient reports good compliance with HEP. He reports he notices the left hand is improving with fine motor control. He reports his left arm strength is getting close to being back to normal . He reports no functional limitations with the left UE. Assessment OT Clinical Summary Patient has attended 14 OT sessions focused on improved left UE strength and coordination as well as improved functional independence with ADLs. Patient has made great progress with OT. Left shoulder ROM and strength has improved to normal limits, compared to 100 degrees of flexion and 90 degrees of abduction at the initial evaluation. The past month was focused on left fine motor coordination skills. He improved with the 9-hole peg test, completing the test in 66 seconds, compared to 85 seconds last month. He is currently independent with rag grader strengthening and fine motor HEP. Plan to wrap up care today and discharge with the patient independent with all materials. Plan of Care OT Services Indicated No
--- NOTE | 2024-07-28 13:30 | PTOPDC ---
Assessment and note entered by Emani Monet, PT Assessment Status Discharge ICD-10 Condition Codes (PT) Difficulty Walking R26.2,Abnormalities of gait and mobility R26.9,Weakness R53.1 Other ICD-10 Condition Codes ( CVA I63.511 PT) Onset 04-22-24 Subjective Information doing better, but walking balance is still bad; have not had any falls; L leg is stronger, but knee hurts today; do my exercises every day- in morning and evening; Reported Pain Level Pain Score 6: Self Report R knee Assessment PT Clinical Summary Tyler has received a total of 18 sessions. Compare to the last reassessment: sit to/from stand with bilateral UE use and now can stand to sit with 1 UE use; 2 minute walking test distance is the same at 125' with wheeled walker; Tinetti balance score from 11 to 13/28; TUG time from 62 to 64 seconds; difficulty with turning to sit down--increase time and difficulty with movements of L LE; education completed for HEP. The goals were partially met. Discharge PT. He is to continue with his HEP. Plan of Care PT Services Indicated No
== END 2024-07-30 23:59 | disposition home or self-care (01) ==
LOC: ANHPT 12:30
PROVIDERS: PCP Family Medicine; Visit Provider Family Medicine
DX: I63.511 Cerebral infarction due to unspecified occlusion or stenosis of right middle cerebral artery (principal); I69.918 Other symptoms and signs involving cognitive functions following unspecified cerebrovascular disease
CPT/HCPCS: 92507; 92523; 92526; 92610; 97110; 97112; 97116; 97161; 97166; 97530

== ENCOUNTER 2024-12-14 12:30 | Outpatient (RCR) | payer MEDICARE, OTHER, SELFPAY ==
--- NOTE | 2024-11-02 11:04 | OPREHPOC ---
Outpatient Therapy Plan of Care This is a Multidisciplinary Plan of Care that may contain components documented by all disciplines (PT, OT, and ST.) PT Problem 1 PT Problem #1 Knowledge Deficit PT Goal 1 Goal / Goal Update *independent with HEP Target Visit 10 PT Problem 2 PT Problem #2 Impaired Strength PT Goal 1 Goal / Goal Update *increase gross strength of R and L hip to 4/5 Target Visit 10 PT Problem 3 PT Problem #3 Impaired Functional Mobility PT Goal 1 Goal / Goal Update 1* transfer sit/stand with use of 1 UE 2* 5 reps sit/stand time of 55 seconds 3* TUG with wheeled walker, 50 seconds 4* pt ambulate with step length pass other foot 5* pt ambulate with good hip and knee flexion with swing through phase 6* up/down 4 steps with bilateral hand rails, CGA for safety Target Visit 10
--- NOTE | 2024-11-02 11:04 | PTOPEVAL1 ---
Assessment and note entered by Emani Monet PT Evaluation Information Assessment Status Evaluation ICD-10 Condition Codes (PT) Repeated falls R29.6,Difficulty Walking R26.2, Abnormalities of gait and mobility R26.9,Weakness R53.1 Onset August 2024 Subjective Information gradually more weakness and walking problems; in the past 3 months have had 1 fall; more problems getting up 2 steps from garage into house- hold onto door jam and shelf on side; previous PT here, finished in July---does do the leg exercises at home; limited community outings-- go out to eat occassionally, sit on back porch activity: walk in shower with seat; pt able to dress independent; does all home tasks; GOAL: move L leg better, walk better Reported Pain Level Pain Score 0: Self Report Assessment PT Clinical Summary Tyler has the diagnosis of LE weakness, decreased mobility and gait skills, with recent fall. In the past 3 months, he has had 1 fall. He has had PT here in the past and reports doing his exercises at home. present and supportive to pt. She does most of the home tasks. LE functional scale self rating of 65% limitation in activity level. With the evaluation: he ambulates with a wheeled walker and poor gait pattern; weakness over both legs, L weaker than R; TUG time of 74 seconds and 5 reps sit/stand time of 83 seconds, with use of both UE's. Skilled PT services are indicated to increase LE strength, gait and balance skills, with education for gait pattern, steps and HEP progression. Plan of Care Interventions Gait Training,Neuro Re-education,Patient/Caregiver Education,Therapeutic Activities,Therapeutic Exercise PT Services Indicated Yes Treatment Frequency and 1-2x/wk for 10 visits Duration These treatments will address the objective and functional deficits as defined above. The patient will be advanced safely and appropriately in order for the patient to progress towards his/her prior level of function. Additional exercises will be introduced and as well as a comprehensive home exercise program upon discharge, if needed, ?to ensure carryover of functional gains achieved in the clinic. This treatment plan has been reviewed and agreement upon by the patient.
--- NOTE | 2024-12-14 13:32 | OPREHPOC ---
Outpatient Therapy Plan of Care This is a Multidisciplinary Plan of Care that may contain components documented by all disciplines (PT, OT, and ST.) PT Problem 1 PT Problem #1 Knowledge Deficit PT Goal 1 Goal / Goal Update *independent with HEP 12-14-24 d/c goal met Target Visit 10 Progress Met PT Problem 2 PT Problem #2 Impaired Strength PT Goal 1 Goal / Goal Update *increase gross strength of R and L hip to 4/5 12-14-24 d/c goal not met, 4-/5 Target Visit 10 Progress Not Met PT Problem 3 PT Problem #3 Impaired Functional Mobility PT Goal 1 Goal / Goal Update 1* transfer sit/stand with use of 1 UE 2* 5 reps sit/stand time of 55 seconds 3* TUG with wheeled walker, 50 seconds 4* pt ambulate with step length pass other foot 5* pt ambulate with good hip and knee flexion with swing through phase 6* up/down 4 steps with bilateral hand rails, CGA for safety 12-14-24 d/c goal 6 met; #1 use of both UEs; #2 85 sec; #3 80 sec; #4 not pass other foot; #5 decreased L hip and knee flexion Target Visit 10 Progress Partially Met
--- NOTE | 2024-12-14 13:32 | PTOPDC ---
Assessment and note entered by Emani Monet, PT Assessment Status Discharge ICD-10 Condition Codes (PT) Repeated falls R29.6,Difficulty Walking R26.2, Abnormalities of gait and mobility R26.9,Weakness R53.1 Onset August 2024 Subjective Information feel like a little better since coming for therapy , little stronger; doing the exercises at home and reminds me to walk the right way; have not had any falls; want to stop therapy for now and keep doing the exercises at home. Reported Pain Level Pain Score 5: Self Report Additional Pain Score Comments R and L whole legs hurt; L knee most painful Assessment PT Clinical Summary Tyler has received 10 PT sessions. Since attending therapy he has not had any falls. Compared to the initial evaluation: walking distance is the same at ~ 120' maximum distance with rollator; TUG from 74 to 80 seconds with wheeled walker; 5 reps sit/stand with both UE from 83 to 85 seconds; 4 steps with bilateral hand rails and CGA for safety with single step pattern; walking pattern has improved--better walker placement and safety with turning and sit/ stand transfer. Education completed for HEP and safety. Discussed outcome of today's assessment with pt and his Marii. The goals were partially achieved. Discharge PT. He is to continue with HEP, walking as tolerated. Plan of Care PT Services Indicated No
== END 2024-12-14 14:33 | disposition home or self-care (01) ==
LOC: ANHPT 12:30
PROVIDERS: PCP Family Medicine; Visit Provider Family Medicine
DX: R27.0 Ataxia, unspecified (principal); I63.9 Cerebral infarction, unspecified; G83.9 Paralytic syndrome, unspecified; E11.42 Type 2 diabetes mellitus with diabetic polyneuropathy
CPT/HCPCS: 97110; 97112; 97116; 97161; 97530